=== PATIENT | male | born 1985 | race African-American/Black ===

== ENCOUNTER 2016-03-14 18:42 | Inpatient (IN) | payer SELFPAY ==
[~2016-03-14] VITALS: Ht 172.7 cm; Wt 88.5 kg
[~2016-03-14 18:42] MED LIST: CEPH500T PO; CLIN-44 PO; HYDR-971 PO; IBUP-1060 PO; SULF1TAB23 PO
--- NOTE | 2016-03-14 19:27 | PHYS DOC ---
Past Medical History Past Medical History: Asthma, Other Additional Past Medical Histor: family hx - DVT, HTN Past Surgical History: No Surgical History Alcohol Use: Occasionally Drug Use: None Adult General Chief Complaint Chief Complaint: KNEE INJURY HPI HPI Patient is a 31 year old male presents emergency Department stating he is having left knee pain. He states that he's been having some yellow drainage and discharge coming from the site. He states the knee is very red warm and tender to touch. He states he has numbness and tingling going down into his foot. He denies any difficulty with ambulation. He does state he's had cellulitis in the past. Patient denies any trauma or injury to the knee. Review of Systems Review of Systems Constitutional: Denies fever or chills [] Eyes: Denies change in visual acuity, redness, or eye pain [] HENT: Denies nasal congestion or sore throat [] Respiratory: Denies cough or shortness of breath [] Cardiovascular: No additional information not addressed in HPI [] Musculoskeletal: Denies back pain. Left knee pain with swelling and injury Integument: Denies rash or skin lesions [] Neurologic: Denies headache, focal weakness or sensory changes [] Current Medications Current Medications Current Medications Medications (Trade) Dose Ordered Sig/Akua Start Time Stop Time Status Last Admin Dose Admin Acetaminophen/ Hydrocodone Bitart (Lortab 5/325) 2 tab 1X ONCE 03/14/16 20:15 03/14/16 20:16 DC Allergies Allergies Allergies Coded Allergies Type Severity Reaction Last Updated Verified Fish Containing Products Allergy Intermediate 11/06/15 Yes shellfish derived Allergy Intermediate 11/06/15 Yes Physical Exam Physical Exam Constitutional: Well developed, well nourished, no acute distress, non-toxic appearance. [] HENT: Normocephalic, atraumatic, bilateral external ears normal, oropharynx moist, no oral exudates, nose normal. [] Eyes: PERRLA, EOMI, conjunctiva normal, no discharge. [] Neck: Normal range of motion, no tenderness, supple, no stridor. [] Cardiovascular:Heart rate regular rhythm Lungs & Thorax: No respiratory distress noted Skin: Warm, dry, no erythema, no rash. [] Back: No tenderness Extremities: Left knee tenderness, no cyanosis, no clubbing, ROM intact, no edema. Redness, warmth tenderness with yellow drainage noted on the knee Neurologic: Alert and oriented X 3, normal motor function, normal sensory function, no focal deficits noted. [] Psychologic: Affect normal, judgement normal, mood normal. [] Current Patient Data Vital Signs Vital Signs Date Time Temp Pulse Resp B/P Pulse Ox O2 Delivery O2 Flow Rate FiO2 03/14/16 18:50 98.6 86 18 99 Room Air 98.6 Lab Values Laboratory Tests Test 03/14/16 19:39 White Blood Count 16.4x10^3/uL (4.0-11.0) H Red Blood Count 5.66x10^6/uL (4.30-5.70) Hemoglobin 14.9g/dL (13.0-17.5) Hematocrit 46.6% (39.0-53.0) Mean Corpuscular Volume 82fL (79-100) Mean Corpuscular Hemoglobin 26pg (25-35) Mean Corpuscular Hemoglobin Concent 32g/dL (31-37) Red Cell Distribution Width 14.5% (11.5-14.5) Platelet Count 188x10^3/uL (140-400) Neutrophils (%) (Auto) 83% (31-73) H Lymphocytes (%) (Auto) 8% (24-48) L Monocytes (%) (Auto) 7% (0-9) Eosinophils (%) (Auto) 2% (0-3) Basophils (%) (Auto) 0% (0-3) Neutrophils # (Auto) 13.7x10^3uL (1.8-7.7) H Lymphocytes # (Auto) 1.4x10^3/uL (1.0-4.8) Monocytes # (Auto) 1.1x10^3/uL (0.0-1.1) Eosinophils # (Auto) 0.2x10^3/uL (0.0-0.7) Basophils # (Auto) 0.1x10^3/uL (0.0-0.2) Sodium Level 139mmol/L (136-145) Potassium Level 3.6mmol/L (3.5-5.1) Chloride Level 103mmol/L (98-107) Carbon Dioxide Level 24mmol/L (21-32) Anion Gap 12 (6-14) Blood Urea Nitrogen 13mg/dL (8-26) Creatinine 1.0mg/dL (0.7-1.3) Estimated GFR (Cockcroft-Gault) 106.2 BUN/Creatinine Ratio 13 (6-20) Glucose Level 75mg/dL (70-99) Calcium Level 9.5mg/dL (8.5-10.1) Total Bilirubin 0.7mg/dL (0.2-1.0) Aspartate Amino Transferase (AST) 19U/L (15-37) Alanine Aminotransferase (ALT) 27U/L (16-63) Alkaline Phosphatase 75U/L (46-116) Total Protein 8.5g/dL (6.4-8.2) H Albumin 4.0g/dL (3.4-5.0) Albumin/Globulin Ratio 0.9 (1.0-1.7) L Laboratory Tests 03/14/16 19:39 Laboratory Tests 03/14/16 19:39 EKG EKG [] Radiology/Procedures Radiology/Procedures [] Course & Med Decision Making Course & Med Decision Making Pertinent Labs and Imaging studies reviewed. (See chart for details) X-ray was negative for any abnormalities. [address] Kelli hampton in regards to admission for this patient. White count is 16.4 no abnormalities noted in the left knee x-ray. Patient's peripheral pulses are 2+ cap refill brisk less than 2 seconds. Patient's swelling appears to be 3 times the size of the right knee. Does appear to be warm and tender to touch. We'll provide patient with vancomycin IV and will also provide patient with hydrocodone for pain and discomfort. Orthopedic consult will be obtained as well. [] Dragon Disclaimer Dragon Disclaimer This electronic medical record was generated, in whole or in part, using a voice recognition dictation system. Departure Departure Impression: Primary Impression: Cellulitis of left knee Disposition: ADMITTED INPATIENT Admitting Physician: Alexis Pereira Condition: STABLE Referrals: NO PCP (PCP) MARIALUISA VELÁZQUEZ NP Mar 14, 2016 19:27
[2016-03-14 19:46] LABS: BASO # 0.1 x10^3/uL (0.0-0.2); BASO % 0 % (0-3); EOS % 2 % (0-3); HEMATOCRIT 46.6 % (39.0-53.0); HEMOGLOBIN 14.9 g/dL (13.0-17.5); LYMPH # 1.4 x10^3/uL (1.0-4.8); LYMPH % 8 % (24-48); MEAN CORPUSCULAR HEMOGLOBIN 26 pg (25-35); MEAN CORPUSCULAR HGB CONC 32 g/dL (31-37); MEAN CORPUSCULAR VOLUME 82 fL (79-100); MONO % 7 % (0-9); NEUT % 83 % (31-73); PLATELET COUNT 188 x10^3/uL (140-400); RED BLOOD COUNT 5.66 x10^6/uL (4.30-5.70); RED CELL DISTRIBUTION WIDTH 14.5 % (11.5-14.5); WHITE BLOOD COUNT 16.4 x10^3/uL (4.0-11.0)
[2016-03-14 20:04] LABS: CALCIUM 9.5 mg/dL (8.5-10.1); GFR 106.2; POTASSIUM 3.6 mmol/L (3.5-5.1)
[2016-03-14 20:10] LABS: ALBUMIN/GLOBULIN RATIO 0.9 (1.0-1.7); TOTAL BILIRUBIN 0.7 mg/dL (0.2-1.0); TOTAL PROTEIN 8.5 g/dL (6.4-8.2)
[2016-03-14] MEDS ORDERED: HYDROCODONE/APAP 5/325MG TABLET. PO ONE (20:15)
[2016-03-14] MEDS ORDERED: VANCOMYCIN 2 GM in IV NORMAL SALINE 500ML BAG 500 ML IV ONE (20:30)
[2016-03-14] MEDS ORDERED: VANCOMYCIN PER PHARMACY MC PRN ×2 (20:30→21:00)
--- NOTE | 2016-03-14 20:52 | PDOC1 ---
History and Physical Past Medical History Past Medical History asthma Past Surgical History Past Surgical History: No pertinent history Family History Family History ? HTN Social History Smoke: No ALCOHOL: occassional Current Problem List Problem List Problems Medical Problems: (1) Cellulitis of left knee Status: Acute Current Medications Current Medications Current Medications Medications (Trade) Dose Ordered Sig/Akua Start Time Stop Time Status Last Admin Dose Admin Acetaminophen/ Hydrocodone Bitart (Lortab 5/325) 2 tab PRN Q6HRS PRN 03/14/16 20:30 Vancomycin HCl 1 each 1 each PRN DAILY PRN 03/14/16 20:30 UNV Vancomycin HCl/ Sodium Chloride (Iv Sodium Chloride 0.9% 500ml Bag) 500 ml @ 250 mls/hr 1X ONCE 03/14/16 20:30 03/14/16 22:29 03/14/16 20:30 250 MLS/HR Allergies Allergies Allergies Coded Allergies Type Severity Reaction Last Updated Verified Fish Containing Products Allergy Intermediate 11/06/15 Yes shellfish derived Allergy Intermediate 11/06/15 Yes ROS Review of System CONSTITUTIONAL: No fever or chills EYES: No recent changes SKIN: No rash or itching CARDIOVASCULAR: No chest pain, syncope, palpitations, or edema RESPIRATORY: No SOB or cough GASTROINTESTINAL: No nausea, vomiting or abdominal pain NEUROLOGICAL: No headaches or weakness ENDOCRINE: No cold or heat intolerance GENITOURINARY: No urgency or frequency of urination MUSCULOSKELETAL: LEFT KNEE PAIN AND SWELLING LYMPHATICS: No enlarged lymph nodes PSYCHIATRIC: No anxiety or depression Physical Exam Physical Exam GEN.: No apparent distress. Alert and oriented. HEENT: Head is normocephalic, atraumatic NECK: Supple. no jvd LUNGS: Clear to auscultation. normal airflow HEART: RRR, S1, S2 present. Peripheral pulses intact ABDOMEN: Soft, nontender. Positive bowel sounds. EXTREMITIES: LEFT KNEE SWOLLEN, ERYTHEMATOUS, FURUNCLES NEUROLOGIC: Normal speech, normal tone PSYCHIATRIC: Normal affect, normal mood. SKIN: Vitals Vitals Vital Signs Date Time Temp Pulse Resp B/P Pulse Ox O2 Delivery O2 Flow Rate FiO2 03/14/16 18:50 98.6 86 18 99 Room Air 98.6 Labs Labs Laboratory Tests Test 03/14/16 19:39 White Blood Count 16.4x10^3/uL (4.0-11.0) Red Blood Count 5.66x10^6/uL (4.30-5.70) Hemoglobin 14.9g/dL (13.0-17.5) Hematocrit 46.6% (39.0-53.0) Mean Corpuscular Volume 82fL (79-100) Mean Corpuscular Hemoglobin 26pg (25-35) Mean Corpuscular Hemoglobin Concent 32g/dL (31-37) Red Cell Distribution Width 14.5% (11.5-14.5) Platelet Count 188x10^3/uL (140-400) Neutrophils (%) (Auto) 83% (31-73) Lymphocytes (%) (Auto) 8% (24-48) Monocytes (%) (Auto) 7% (0-9) Eosinophils (%) (Auto) 2% (0-3) Basophils (%) (Auto) 0% (0-3) Neutrophils # (Auto) 13.7x10^3uL (1.8-7.7) Lymphocytes # (Auto) 1.4x10^3/uL (1.0-4.8) Monocytes # (Auto) 1.1x10^3/uL (0.0-1.1) Eosinophils # (Auto) 0.2x10^3/uL (0.0-0.7) Basophils # (Auto) 0.1x10^3/uL (0.0-0.2) Sodium Level 139mmol/L (136-145) Potassium Level 3.6mmol/L (3.5-5.1) Chloride Level 103mmol/L (98-107) Carbon Dioxide Level 24mmol/L (21-32) Anion Gap 12 (6-14) Blood Urea Nitrogen 13mg/dL (8-26) Creatinine 1.0mg/dL (0.7-1.3) Estimated GFR (Cockcroft-Gault) 106.2 BUN/Creatinine Ratio 13 (6-20) Glucose Level 75mg/dL (70-99) Calcium Level 9.5mg/dL (8.5-10.1) Total Bilirubin 0.7mg/dL (0.2-1.0) Aspartate Amino Transf (AST/SGOT) 19U/L (15-37) Alanine Aminotransferase (ALT/SGPT) 27U/L (16-63) Alkaline Phosphatase 75U/L (46-116) Total Protein 8.5g/dL (6.4-8.2) Albumin 4.0g/dL (3.4-5.0) Albumin/Globulin Ratio 0.9 (1.0-1.7) Laboratory Tests Test 03/14/16 19:39 White Blood Count 16.4x10^3/uL (4.0-11.0) Red Blood Count 5.66x10^6/uL (4.30-5.70) Hemoglobin 14.9g/dL (13.0-17.5) Hematocrit 46.6% (39.0-53.0) Mean Corpuscular Volume 82fL (79-100) Mean Corpuscular Hemoglobin 26pg (25-35) Mean Corpuscular Hemoglobin Concent 32g/dL (31-37) Red Cell Distribution Width 14.5% (11.5-14.5) Platelet Count 188x10^3/uL (140-400) Neutrophils (%) (Auto) 83% (31-73) Lymphocytes (%) (Auto) 8% (24-48) Monocytes (%) (Auto) 7% (0-9) Eosinophils (%) (Auto) 2% (0-3) Basophils (%) (Auto) 0% (0-3) Neutrophils # (Auto) 13.7x10^3uL (1.8-7.7) Lymphocytes # (Auto) 1.4x10^3/uL (1.0-4.8) Monocytes # (Auto) 1.1x10^3/uL (0.0-1.1) Eosinophils # (Auto) 0.2x10^3/uL (0.0-0.7) Basophils # (Auto) 0.1x10^3/uL (0.0-0.2) Sodium Level 139mmol/L (136-145) Potassium Level 3.6mmol/L (3.5-5.1) Chloride Level 103mmol/L (98-107) Carbon Dioxide Level 24mmol/L (21-32) Anion Gap 12 (6-14) Blood Urea Nitrogen 13mg/dL (8-26) Creatinine 1.0mg/dL (0.7-1.3) Estimated GFR (Cockcroft-Gault) 106.2 BUN/Creatinine Ratio 13 (6-20) Glucose Level 75mg/dL (70-99) Calcium Level 9.5mg/dL (8.5-10.1) Total Bilirubin 0.7mg/dL (0.2-1.0) Aspartate Amino Transf (AST/SGOT) 19U/L (15-37) Alanine Aminotransferase (ALT/SGPT) 27U/L (16-63) Alkaline Phosphatase 75U/L (46-116) Total Protein 8.5g/dL (6.4-8.2) Albumin 4.0g/dL (3.4-5.0) Albumin/Globulin Ratio 0.9 (1.0-1.7) VTE Prophylaxis Ordered VTE Prophylaxis Devices: Yes VTE Pharmacological Prophylaxi: Yes ANDREWS RAMOS MD Mar 14, 2016 20:52
[2016-03-14] MEDS ORDERED: HYDROCODONE/APAP 5/325MG TABLET. PO PRN (21:00)
[2016-03-14] MEDS ORDERED: ALBUTEROL SULFATE 2.5 MG/3 ML NEBU. NEB PRN (21:00)
[2016-03-14] MEDS ORDERED: ACETAMINOPHEN 325 MG TABLET. PO PRN (21:00)
[2016-03-14] MEDS ORDERED: ONDANSETRON PF 4 MG/2 ML VIAL. IV PRN (21:00)
[2016-03-14] MEDS ORDERED: hydrALAZINE 20 MG/ML VIAL. IVP PRN (21:00)
[2016-03-14] MEDS ORDERED: MORPHINE SULFATE 2 MG/ML DISP.SYRIN. IV PRN (21:00)
[2016-03-14 23:00] VITALS: BP 117/82
--- NOTE | 2016-03-15 00:02 | HP ---
ADMIT DATE: 03/14/2016 CHIEF COMPLAINT: Left knee swelling, rash and redness. HISTORY OF PRESENT ILLNESS: A 31-year-old male patient with prior history of asthma, presented to the ER with complaints of 3 days of left knee redness, swelling and yellowish drainage. Also the patient noted worsening swelling compared to the right, could not able to have full range of motion around his left knee. Denies any trauma or prior history of knee surgeries. The patient had difficulty with ambulation due to pain and restrictive range of motion. He also had some furuncles and boils on the left talley. Per patient, this infection has been progressively getting worse. PAST MEDICAL HISTORY: Please see my electronic H and P. REVIEW OF SYSTEMS: Please see my electronic H and P. PHYSICAL EXAMINATION: Please see my electronic H and P. LABORATORY FINDINGS: 1. WBC 16.4, hemoglobin is 14.9, MCV is 82 and platelets are 188. 2. Chemistry: Sodium is 139, potassium 3.6, carbon dioxide is 24, creatinine is 1.0. IMAGING STUDIES: Knee x-ray preliminary report showed no acute pathology identified. ASSESSMENT AND PLAN: 1. Left knee cellulitis. Needs to rule out any joint involvement or abscess.. 2. Suspected MRSA infection. PLAN: 1. The patient has been admitted for pain control and IV antibiotics. We will start him on vancomycin renal dosing. 2. Pain control with IV morphine. 3. ____ has been consulted. 4. DVT prophylaxis, supportive care. 5. Plan explained to the patient. ANDREWS RAMOS MD DR: NORBERTO/liss JOB#: [id number] / [id number]
[2016-03-15] MEDS: HYDROCODONE/APAP 5/325MG TABLET. PO PRN ×3 (02:20→16:54)
[2016-03-15] MEDS: VANCOMYCIN 1.25 GM in IV NORMAL SALINE 250ML 250 ML IV SCH ×2 (05:43→14:34)
[2016-03-15 06:44] LABS: BASO % 0 % (0-3); EOS % 1 % (0-3); LYMPH # 1.8 x10^3/uL (1.0-4.8); LYMPH % 12 % (24-48); MEAN CORPUSCULAR HEMOGLOBIN 27 pg (25-35); MEAN CORPUSCULAR HGB CONC 33 g/dL (31-37); MEAN CORPUSCULAR VOLUME 83 fL (79-100); MONO % 8 % (0-9); NEUT % 79 % (31-73); PLATELET COUNT 206 x10^3/uL (140-400); RED BLOOD COUNT 5.57 x10^6/uL (4.30-5.70); RED CELL DISTRIBUTION WIDTH 14.2 % (11.5-14.5); WHITE BLOOD COUNT 14.7 x10^3/uL (4.0-11.0)
[2016-03-15 06:46] LABS: CALCIUM 8.8 mg/dL (8.5-10.1); CREATININE 1.1 mg/dL (0.7-1.3); GFR 95.1; POTASSIUM 3.6 mmol/L (3.5-5.1)
[2016-03-15 07:00] VITALS: BP 128/78
--- NOTE | 2016-03-15 07:04 | RAD ---
EXAM: Left knee, 3 views. HISTORY: Pain and swelling. COMPARISON: None. FINDINGS: Frontal, lateral and oblique views of the left knee are obtained. There is no fracture, dislocation or subluxation. There is prepatellar soft tissue prominence. There is no effusion. IMPRESSION: 1. No acute osseous finding. 2. Prepatellar soft tissue prominence. In the absence of recent trauma suggest a soft tissue contusion, this may be due to prepatellar bursitis.
[2016-03-15] MEDS ORDERED: ACETAMINOPHEN 325 MG TABLET. PO PRN (09:15)
[2016-03-15 11:00] VITALS: BP 125/69
[2016-03-15] MEDS ORDERED: PROAIR HFA8.5 GM INH (14:41)
[2016-03-15 14:50] VITALS: BP 127/78
--- NOTE | 2016-03-15 15:00 | PDOC ---
PROGRESS NOTES Chief Complaint Chief Complaint 1. Pre patellar bursitis 2. Hx left talley cellulitis 2 mos ago History of Present Illness History of Present Illness Still cant flex left knee warm to touch, swelling appreciable Xray shows sift tissue swelling but no fluid or fx Pt denies any trauma No fevers WBC down to 12 from 14 2 mos ago had cellulitis of left talley, treated at ER with I and D and sent home on PO bactrim, doxy and kefflex Pt denies any hardware in the knee Vitals Vitals Vital Signs Date Time Temp Pulse Resp B/P Pulse Ox O2 Delivery O2 Flow Rate FiO2 03/15/16 14:50 99.1 91 20 127/78 95 Room Air 99.1 Physical Exam General: Alert, Oriented X3, Cooperative Heart: Regular rate, Normal S1, Normal S2 Lungs: Clear Abdomen: Normal bowel sounds, Soft Extremities: Other (left knee swelling, warmth, tender to touch, limited flexion) Labs LABS Laboratory Tests Test 03/14/16 19:39 03/15/16 05:55 White Blood Count 16.4x10^3/uL (4.0-11.0) 14.7x10^3/uL (4.0-11.0) Red Blood Count 5.66x10^6/uL (4.30-5.70) 5.57x10^6/uL (4.30-5.70) Hemoglobin 14.9g/dL (13.0-17.5) 15.0g/dL (13.0-17.5) Hematocrit 46.6% (39.0-53.0) 46.0% (39.0-53.0) Mean Corpuscular Volume 82fL (79-100) 83fL (79-100) Mean Corpuscular Hemoglobin 26pg (25-35) 27pg (25-35) Mean Corpuscular Hemoglobin Concent 32g/dL (31-37) 33g/dL (31-37) Red Cell Distribution Width 14.5% (11.5-14.5) 14.2% (11.5-14.5) Platelet Count 188x10^3/uL (140-400) 206x10^3/uL (140-400) Neutrophils (%) (Auto) 83% (31-73) 79% (31-73) Lymphocytes (%) (Auto) 8% (24-48) 12% (24-48) Monocytes (%) (Auto) 7% (0-9) 8% (0-9) Eosinophils (%) (Auto) 2% (0-3) 1% (0-3) Basophils (%) (Auto) 0% (0-3) 0% (0-3) Neutrophils # (Auto) 13.7x10^3uL (1.8-7.7) 11.6x10^3uL (1.8-7.7) Lymphocytes # (Auto) 1.4x10^3/uL (1.0-4.8) 1.8x10^3/uL (1.0-4.8) Monocytes # (Auto) 1.1x10^3/uL (0.0-1.1) 1.1x10^3/uL (0.0-1.1) Eosinophils # (Auto) 0.2x10^3/uL (0.0-0.7) 0.2x10^3/uL (0.0-0.7) Basophils # (Auto) 0.1x10^3/uL (0.0-0.2) 0.0x10^3/uL (0.0-0.2) Sodium Level 139mmol/L (136-145) 139mmol/L (136-145) Potassium Level 3.6mmol/L (3.5-5.1) 3.6mmol/L (3.5-5.1) Chloride Level 103mmol/L (98-107) 104mmol/L (98-107) Carbon Dioxide Level 24mmol/L (21-32) 26mmol/L (21-32) Anion Gap 12 (6-14) 9 (6-14) Blood Urea Nitrogen 13mg/dL (8-26) 9mg/dL (8-26) Creatinine 1.0mg/dL (0.7-1.3) 1.1mg/dL (0.7-1.3) Estimated GFR (Cockcroft-Gault) 106.2 95.1 BUN/Creatinine Ratio 13 (6-20) Glucose Level 75mg/dL (70-99) 86mg/dL (70-99) Calcium Level 9.5mg/dL (8.5-10.1) 8.8mg/dL (8.5-10.1) Total Bilirubin 0.7mg/dL (0.2-1.0) Aspartate Amino Transf (AST/SGOT) 19U/L (15-37) Alanine Aminotransferase (ALT/SGPT) 27U/L (16-63) Alkaline Phosphatase 75U/L (46-116) Total Protein 8.5g/dL (6.4-8.2) Albumin 4.0g/dL (3.4-5.0) Albumin/Globulin Ratio 0.9 (1.0-1.7) Review of Systems Review of Systems all 14 pt reviewed, neg Assessment and Plan Assessmemt and Plan START NSAID scheduled Await ortho expertise De escalate to rocephin - i have low suspicion for MRSA, in fact i do not think the knee is infected ta all - may dc antibiotic all together Hopefully home adriana Problems Medical Problems: (1) Cellulitis of left knee Status: Acute Problems: Comment Review of Relevant I have reviewed the following items ander (where applicable) has been applied. Labs Laboratory Tests Test 03/14/16 19:39 03/15/16 05:55 White Blood Count 16.4x10^3/uL (4.0-11.0) 14.7x10^3/uL (4.0-11.0) Red Blood Count 5.66x10^6/uL (4.30-5.70) 5.57x10^6/uL (4.30-5.70) Hemoglobin 14.9g/dL (13.0-17.5) 15.0g/dL (13.0-17.5) Hematocrit 46.6% (39.0-53.0) 46.0% (39.0-53.0) Mean Corpuscular Volume 82fL (79-100) 83fL (79-100) Mean Corpuscular Hemoglobin 26pg (25-35) 27pg (25-35) Mean Corpuscular Hemoglobin Concent 32g/dL (31-37) 33g/dL (31-37) Red Cell Distribution Width 14.5% (11.5-14.5) 14.2% (11.5-14.5) Platelet Count 188x10^3/uL (140-400) 206x10^3/uL (140-400) Neutrophils (%) (Auto) 83% (31-73) 79% (31-73) Lymphocytes (%) (Auto) 8% (24-48) 12% (24-48) Monocytes (%) (Auto) 7% (0-9) 8% (0-9) Eosinophils (%) (Auto) 2% (0-3) 1% (0-3) Basophils (%) (Auto) 0% (0-3) 0% (0-3) Neutrophils # (Auto) 13.7x10^3uL (1.8-7.7) 11.6x10^3uL (1.8-7.7) Lymphocytes # (Auto) 1.4x10^3/uL (1.0-4.8) 1.8x10^3/uL (1.0-4.8) Monocytes # (Auto) 1.1x10^3/uL (0.0-1.1) 1.1x10^3/uL (0.0-1.1) Eosinophils # (Auto) 0.2x10^3/uL (0.0-0.7) 0.2x10^3/uL (0.0-0.7) Basophils # (Auto) 0.1x10^3/uL (0.0-0.2) 0.0x10^3/uL (0.0-0.2) Sodium Level 139mmol/L (136-145) 139mmol/L (136-145) Potassium Level 3.6mmol/L (3.5-5.1) 3.6mmol/L (3.5-5.1) Chloride Level 103mmol/L (98-107) 104mmol/L (98-107) Carbon Dioxide Level 24mmol/L (21-32) 26mmol/L (21-32) Anion Gap 12 (6-14) 9 (6-14) Blood Urea Nitrogen 13mg/dL (8-26) 9mg/dL (8-26) Creatinine 1.0mg/dL (0.7-1.3) 1.1mg/dL (0.7-1.3) Estimated GFR (Cockcroft-Gault) 106.2 95.1 BUN/Creatinine Ratio 13 (6-20) Glucose Level 75mg/dL (70-99) 86mg/dL (70-99) Calcium Level 9.5mg/dL (8.5-10.1) 8.8mg/dL (8.5-10.1) Total Bilirubin 0.7mg/dL (0.2-1.0) Aspartate Amino Transf (AST/SGOT) 19U/L (15-37) Alanine Aminotransferase (ALT/SGPT) 27U/L (16-63) Alkaline Phosphatase 75U/L (46-116) Total Protein 8.5g/dL (6.4-8.2) Albumin 4.0g/dL (3.4-5.0) Albumin/Globulin Ratio 0.9 (1.0-1.7) Laboratory Tests Test 03/14/16 19:39 03/15/16 05:55 White Blood Count 16.4x10^3/uL (4.0-11.0) 14.7x10^3/uL (4.0-11.0) Red Blood Count 5.66x10^6/uL (4.30-5.70) 5.57x10^6/uL (4.30-5.70) Hemoglobin 14.9g/dL (13.0-17.5) 15.0g/dL (13.0-17.5) Hematocrit 46.6% (39.0-53.0) 46.0% (39.0-53.0) Mean Corpuscular Volume 82fL (79-100) 83fL (79-100) Mean Corpuscular Hemoglobin 26pg (25-35) 27pg (25-35) Mean Corpuscular Hemoglobin Concent 32g/dL (31-37) 33g/dL (31-37) Red Cell Distribution Width 14.5% (11.5-14.5) 14.2% (11.5-14.5) Platelet Count 188x10^3/uL (140-400) 206x10^3/uL (140-400) Neutrophils (%) (Auto) 83% (31-73) 79% (31-73) Lymphocytes (%) (Auto) 8% (24-48) 12% (24-48) Monocytes (%) (Auto) 7% (0-9) 8% (0-9) Eosinophils (%) (Auto) 2% (0-3) 1% (0-3) Basophils (%) (Auto) 0% (0-3) 0% (0-3) Neutrophils # (Auto) 13.7x10^3uL (1.8-7.7) 11.6x10^3uL (1.8-7.7) Lymphocytes # (Auto) 1.4x10^3/uL (1.0-4.8) 1.8x10^3/uL (1.0-4.8) Monocytes # (Auto) 1.1x10^3/uL (0.0-1.1) 1.1x10^3/uL (0.0-1.1) Eosinophils # (Auto) 0.2x10^3/uL (0.0-0.7) 0.2x10^3/uL (0.0-0.7) Basophils # (Auto) 0.1x10^3/uL (0.0-0.2) 0.0x10^3/uL (0.0-0.2) Sodium Level 139mmol/L (136-145) 139mmol/L (136-145) Potassium Level 3.6mmol/L (3.5-5.1) 3.6mmol/L (3.5-5.1) Chloride Level 103mmol/L (98-107) 104mmol/L (98-107) Carbon Dioxide Level 24mmol/L (21-32) 26mmol/L (21-32) Anion Gap 12 (6-14) 9 (6-14) Blood Urea Nitrogen 13mg/dL (8-26) 9mg/dL (8-26) Creatinine 1.0mg/dL (0.7-1.3) 1.1mg/dL (0.7-1.3) Estimated GFR (Cockcroft-Gault) 106.2 95.1 BUN/Creatinine Ratio 13 (6-20) Glucose Level 75mg/dL (70-99) 86mg/dL (70-99) Calcium Level 9.5mg/dL (8.5-10.1) 8.8mg/dL (8.5-10.1) Total Bilirubin 0.7mg/dL (0.2-1.0) Aspartate Amino Transf (AST/SGOT) 19U/L (15-37) Alanine Aminotransferase (ALT/SGPT) 27U/L (16-63) Alkaline Phosphatase 75U/L (46-116) Total Protein 8.5g/dL (6.4-8.2) Albumin 4.0g/dL (3.4-5.0) Albumin/Globulin Ratio 0.9 (1.0-1.7) Medications Current Medications Acetaminophen/ Hydrocodone Bitart (Lortab 5/325) 2 tab 1X ONCE PO Last administered on 03/14/16 20:15; Start 03/14/16 at 20:15; Stop 03/14/16 at 20:16 ; Status DC Acetaminophen/ Hydrocodone Bitart (Lortab 5/325) 2 tab PRN Q6HRS PRN PO PAIN Last administered on 03/15/16 08:54; Start 03/14/16 at 20:30 Vancomycin HCl 1 each 1 each PRN DAILY PRN MC SEE COMMENTS; Start 03/14/16 at 20:30; Status Cancel Vancomycin HCl/ Sodium Chloride (Iv Sodium Chloride 0.9% 500ml Bag) 500 ml @ 250 mls/hr 1X ONCE IV Last administered on 03/14/16 20:30; Start 03/14/16 at 20:30; Stop 03/14/16 at 22:29; Status DC Acetaminophen (Tylenol) 325 mg PRN Q6HRS PRN PO MILD PAIN / TEMP; Start at 21:00; Stop 03/15/16 at 09:17; Status DC Acetaminophen/ Hydrocodone Bitart (Lortab 5/325) 1 tab PRN Q6HRS PRN PO MODERATE TO SEVERE PAIN; Start 03/14/16 at 21:00 Hydralazine HCl (Apresoline) 10 mg PRN Q4HRS PRN IVP ELEVATED BP, SEE COMMENTS ; Start 03/14/16 at 21:00 Ondansetron HCl (Zofran) 4 mg PRN Q8HRS PRN IV NAUSEA/VOMITING; Start 03/14/16 at 21:00; Stop 03/15/16 at 09:17; Status DC Albuterol Sulfate (Ventolin Neb Soln) 2.5 mg PRN Q4HRS PRN NEB SHORTNESS OF BREATH; Start 03/14/16 at 21:00 Vancomycin HCl (Vanco Per Pharmacy) 1 each PRN DAILY PRN MC SEE COMMENTS Last administered on 03/15/16t 02:35; Start 03/14/16 at 21:00 Morphine Sulfate 2 mg 2 mg PRN Q2HR PRN IV SEVERE PAIN; Start 03/14/16 at 21:00 Vancomycin HCl/ Sodium Chloride (Iv Sodium Chloride 0.9% 250ml) 250 ml @ 167 mls/hr Q8HRS IV Last administered on 03/15/16t 14:34; Start 03/15/16 at 06:00 Vancomycin HCl 1 each 1X ONCE MC ; Start 03/15/16 at 21:30; Stop 03/15/16 at 21 :31 Acetaminophen (Tylenol) 650 mg PRN Q6HRS PRN PO MILD PAIN / TEMP; Start at 09:15 Ondansetron HCl (Zofran) 4 mg PRN Q6HRS PRN IV NAUSEA/VOMITING; Start 03/15/16 at 21:00 Active Scripts Active Ibuprofen 800 Mg Tablet 800 Mg PO PRN Q6HRS PRN Reported Proair Hfa Inhaler (Albuterol Sulfate) 8.5 Gm Hfa.aer.ad 1 Puff INH PRN Q6HRS PRN Vitals/I & O Vital Sign - Last 24 Hours 03/14/16 03/14/16 03/14/16 03/14/16 18:50 21:10 21:10 21:59 Temp 98.6 98.6 Pulse 86 Resp 18 Pulse Ox 99 99 O2 Delivery Room Air Room Air Room Air Room Air 03/14/16 03/15/16 03/15/16 03/15/16 23:00 02:20 07:00 08:00 Temp 98.7 98.4 98.7 98.4 Pulse 78 89 Resp 18 18 20 B/P 117/82 128/78 Pulse Ox 95 95 95 O2 Delivery Room Air Room Air 03/15/16 03/15/16 03/15/16 03/15/16 08:54 09:54 11:00 14:50 Temp 98.8 99.1 98.8 99.1 Pulse 87 91 Resp 20 20 18 20 B/P 125/69 127/78 Pulse Ox 95 95 96 95 O2 Delivery Room Air Room Air Room Air Room Air Intake and Output 03/14/16 03/14/16 03/15/16 15:00 23:00 07:00 Intake Total 360 ml Balance 360 ml DEVIN LOMAX MD Mar 15, 2016 15:00
[2016-03-15] MEDS ORDERED: CEFTRIAXONE SODIUM 1 GM in IV NORMAL SALINE 50ML 50 ML IV SCH (15:30)
[2016-03-15] MEDS: NAPROXEN 500 MG TABLET PO SCH (16:47)
--- NOTE | 2016-03-15 16:51 | PDOC2 ---
CONSULT Date of Consult Date of Consult DATE: 03/15/16 TIME: 16:41 Reason for Consult Reason for Consult: left leg pain, knee swelling Identification/Chief Complaint Chief Complaint left leg pain, history of recent infection Source Source: Chart review, Patient History of Present Illness Reason for Visit: The patient is a 31 year old male who presented to the ER with a chief complaint of three days of leg pain and swelling. No fevers, chills, nausea, or vomiting. He had a previous abscess I&D'd on his left talley a few months ago at an ED. He was told it was cellulitus and placed on bactrim. He does not play sports or attend a gym. He has no recent sick contacts. He reports no trauma to the left leg. He is having difficulty bending the knee and ambulating due to the pain in his left leg. He has noticed some pus filled blisters on his anterior tibia starting today. wbc was elevated at 16.4 on admission, he has been on vancomycin since admission and his wbc is responding accordingly. He has been afebrile since admission. Past Medical History Pulmonary: Asthma Dermatology: Eczema Past Surgical History Past Surgical History: Other (I &D LLE), No pertinent history Family History Family History no significant family history per patient Social History No ALCOHOL: occassional Current Problem List Problem List Problems Medical Problems: (1) Cellulitis of left knee Status: Acute Current Medications Current Medications Current Medications Acetaminophen/ Hydrocodone Bitart (Lortab 5/325) 2 tab 1X ONCE PO Last administered on 03/14/16 20:15; Start 03/14/16 at 20:15; Stop 03/14/16 at 20:16 ; Status DC Acetaminophen/ Hydrocodone Bitart (Lortab 5/325) 2 tab PRN Q6HRS PRN PO MODERATE - SEVERE PAIN Last administered on 03/15/16 08:54; Start 03/14/16 at 20:30 Vancomycin HCl 1 each 1 each PRN DAILY PRN MC SEE COMMENTS; Start 03/14/16 at 20:30; Status Cancel Vancomycin HCl/ Sodium Chloride (Iv Sodium Chloride 0.9% 500ml Bag) 500 ml @ 250 mls/hr 1X ONCE IV Last administered on 03/14/16 20:30; Start 03/14/16 at 20:30; Stop 03/14/16 at 22:29; Status DC Acetaminophen (Tylenol) 325 mg PRN Q6HRS PRN PO MILD PAIN / TEMP; Start at 21:00; Stop 03/15/16 at 09:17; Status DC Acetaminophen/ Hydrocodone Bitart (Lortab 5/325) 1 tab PRN Q6HRS PRN PO MODERATE TO SEVERE PAIN; Start 03/14/16 at 21:00 Hydralazine HCl (Apresoline) 10 mg PRN Q4HRS PRN IVP ELEVATED BP, SEE COMMENTS ; Start 03/14/16 at 21:00 Ondansetron HCl (Zofran) 4 mg PRN Q8HRS PRN IV NAUSEA/VOMITING; Start 03/14/16 at 21:00; Stop 03/15/16 at 09:17; Status DC Albuterol Sulfate (Ventolin Neb Soln) 2.5 mg PRN Q4HRS PRN NEB SHORTNESS OF BREATH; Start 03/14/16 at 21:00 Vancomycin HCl (Vanco Per Pharmacy) 1 each PRN DAILY PRN MC SEE COMMENTS Last administered on 03/15/16t 02:35; Start 03/14/16 at 21:00; Stop 03/15/16 at 15:00 ; Status DC Morphine Sulfate 2 mg 2 mg PRN Q2HR PRN IV SEVERE PAIN; Start 03/14/16 at 21:00 Vancomycin HCl/ Sodium Chloride (Iv Sodium Chloride 0.9% 250ml) 250 ml @ 167 mls/hr Q8HRS IV Last administered on 03/15/16 14:34; Start 03/15/16 at 06:00; Stop 03/15/16 at 14:57; Status DC Vancomycin HCl 1 each 1X ONCE MC ; Start 03/15/16 at 21:30; Stop 03/15/16 at 21 :31; Status Cancel Acetaminophen (Tylenol) 650 mg PRN Q6HRS PRN PO MILD PAIN / TEMP; Start at 09:15 Ondansetron HCl (Zofran) 4 mg PRN Q6HRS PRN IV NAUSEA/VOMITING; Start 03/15/16 at 21:00 Naproxen 500 mg 500 mg BIDWMEALS PO ; Start 03/15/16 at 15:30 Ceftriaxone Sodium/Sodium Chloride (Rocephin/Iv Sodium Chloride 0.9% 50ml) 50 ml @ 100 mls/hr Q24H IV ; Start 03/15/16 at 15:30 Active Scripts Active Ibuprofen 800 Mg Tablet 800 Mg PO PRN Q6HRS PRN Reported Proair Hfa Inhaler (Albuterol Sulfate) 8.5 Gm Hfa.aer.ad 1 Puff INH PRN Q6HRS PRN Allergies Allergies: Coded Allergies: iodine (Verified Allergy, Severe, 03/15/16) Fish Containing Products (Verified Allergy, Intermediate, 11/06/15) SEAFOOD Iodine and Iodide Containing Produc (Verified Allergy, Intermediate, ) IV dye shellfish derived (Verified Allergy, Intermediate, 11/06/15) SEAFOOD ROS General: No: Appetite, Chills, Fatigue, Malaise, Night Sweats, Other Musculoskeletal: Yes Gait Disturbance, Yes Joint Pain, Yes Joint Stiffness, Yes Joint Swelling, Yes Pain In: (lle) Skin: Yes Eczema, Yes Skin Lesion Changes Physical Exam General: Alert, Oriented X3, Cooperative, No acute distress HEENT: Atraumatic, EOMI, Mucous membr. moist/pink Lungs: Normal air movement Heart: Regular rate Extremities: No clubbing, No cyanosis, No edema, Normal pulses Neuro: Normal speech, Sensation intact Psych/Mental Status: Mental status NL MUSCULOSKELETAL: Abnormal exam of left (LLE warm to the touch one handbreadth proximal to the proximal pole of the patella to the ankle. no pitting edema or swelling. significant ttp over the patella, especially where there is some hemmhoragic blistering and what looks to be pus filled blisters. unclear whether there is a joint effusion. no pain with small arc rom. full extension, flexion to 90 with anterior knee pain and tightness. pus filled blisters distally on the anterior tibia. no pockets of fluid, fluctuance, or crepitus notesd ) Vitals VITALS Vital Signs Date Time Temp Pulse Resp B/P Pulse Ox O2 Delivery O2 Flow Rate FiO2 03/15/16 14:50 99.1 91 20 127/78 95 Room Air 99.1 Labs Labs Laboratory Tests Test 03/14/16 19:39 03/15/16 05:55 White Blood Count 16.4x10^3/uL (4.0-11.0) 14.7x10^3/uL (4.0-11.0) Red Blood Count 5.66x10^6/uL (4.30-5.70) 5.57x10^6/uL (4.30-5.70) Hemoglobin 14.9g/dL (13.0-17.5) 15.0g/dL (13.0-17.5) Hematocrit 46.6% (39.0-53.0) 46.0% (39.0-53.0) Mean Corpuscular Volume 82fL (79-100) 83fL (79-100) Mean Corpuscular Hemoglobin 26pg (25-35) 27pg (25-35) Mean Corpuscular Hemoglobin Concent 32g/dL (31-37) 33g/dL (31-37) Red Cell Distribution Width 14.5% (11.5-14.5) 14.2% (11.5-14.5) Platelet Count 188x10^3/uL (140-400) 206x10^3/uL (140-400) Neutrophils (%) (Auto) 83% (31-73) 79% (31-73) Lymphocytes (%) (Auto) 8% (24-48) 12% (24-48) Monocytes (%) (Auto) 7% (0-9) 8% (0-9) Eosinophils (%) (Auto) 2% (0-3) 1% (0-3) Basophils (%) (Auto) 0% (0-3) 0% (0-3) Neutrophils # (Auto) 13.7x10^3uL (1.8-7.7) 11.6x10^3uL (1.8-7.7) Lymphocytes # (Auto) 1.4x10^3/uL (1.0-4.8) 1.8x10^3/uL (1.0-4.8) Monocytes # (Auto) 1.1x10^3/uL (0.0-1.1) 1.1x10^3/uL (0.0-1.1) Eosinophils # (Auto) 0.2x10^3/uL (0.0-0.7) 0.2x10^3/uL (0.0-0.7) Basophils # (Auto) 0.1x10^3/uL (0.0-0.2) 0.0x10^3/uL (0.0-0.2) Sodium Level 139mmol/L (136-145) 139mmol/L (136-145) Potassium Level 3.6mmol/L (3.5-5.1) 3.6mmol/L (3.5-5.1) Chloride Level 103mmol/L (98-107) 104mmol/L (98-107) Carbon Dioxide Level 24mmol/L (21-32) 26mmol/L (21-32) Anion Gap 12 (6-14) 9 (6-14) Blood Urea Nitrogen 13mg/dL (8-26) 9mg/dL (8-26) Creatinine 1.0mg/dL (0.7-1.3) 1.1mg/dL (0.7-1.3) Estimated GFR (Cockcroft-Gault) 106.2 95.1 BUN/Creatinine Ratio 13 (6-20) Glucose Level 75mg/dL (70-99) 86mg/dL (70-99) Calcium Level 9.5mg/dL (8.5-10.1) 8.8mg/dL (8.5-10.1) Total Bilirubin 0.7mg/dL (0.2-1.0) Aspartate Amino Transf (AST/SGOT) 19U/L (15-37) Alanine Aminotransferase (ALT/SGPT) 27U/L (16-63) Alkaline Phosphatase 75U/L (46-116) Total Protein 8.5g/dL (6.4-8.2) Albumin 4.0g/dL (3.4-5.0) Albumin/Globulin Ratio 0.9 (1.0-1.7) Laboratory Tests Test 03/14/16 19:39 03/15/16 05:55 White Blood Count 16.4x10^3/uL (4.0-11.0) 14.7x10^3/uL (4.0-11.0) Red Blood Count 5.66x10^6/uL (4.30-5.70) 5.57x10^6/uL (4.30-5.70) Hemoglobin 14.9g/dL (13.0-17.5) 15.0g/dL (13.0-17.5) Hematocrit 46.6% (39.0-53.0) 46.0% (39.0-53.0) Mean Corpuscular Volume 82fL (79-100) 83fL (79-100) Mean Corpuscular Hemoglobin 26pg (25-35) 27pg (25-35) Mean Corpuscular Hemoglobin Concent 32g/dL (31-37) 33g/dL (31-37) Red Cell Distribution Width 14.5% (11.5-14.5) 14.2% (11.5-14.5) Platelet Count 188x10^3/uL (140-400) 206x10^3/uL (140-400) Neutrophils (%) (Auto) 83% (31-73) 79% (31-73) Lymphocytes (%) (Auto) 8% (24-48) 12% (24-48) Monocytes (%) (Auto) 7% (0-9) 8% (0-9) Eosinophils (%) (Auto) 2% (0-3) 1% (0-3) Basophils (%) (Auto) 0% (0-3) 0% (0-3) Neutrophils # (Auto) 13.7x10^3uL (1.8-7.7) 11.6x10^3uL (1.8-7.7) Lymphocytes # (Auto) 1.4x10^3/uL (1.0-4.8) 1.8x10^3/uL (1.0-4.8) Monocytes # (Auto) 1.1x10^3/uL (0.0-1.1) 1.1x10^3/uL (0.0-1.1) Eosinophils # (Auto) 0.2x10^3/uL (0.0-0.7) 0.2x10^3/uL (0.0-0.7) Basophils # (Auto) 0.1x10^3/uL (0.0-0.2) 0.0x10^3/uL (0.0-0.2) Sodium Level 139mmol/L (136-145) 139mmol/L (136-145) Potassium Level 3.6mmol/L (3.5-5.1) 3.6mmol/L (3.5-5.1) Chloride Level 103mmol/L (98-107) 104mmol/L (98-107) Carbon Dioxide Level 24mmol/L (21-32) 26mmol/L (21-32) Anion Gap 12 (6-14) 9 (6-14) Blood Urea Nitrogen 13mg/dL (8-26) 9mg/dL (8-26) Creatinine 1.0mg/dL (0.7-1.3) 1.1mg/dL (0.7-1.3) Estimated GFR (Cockcroft-Gault) 106.2 95.1 BUN/Creatinine Ratio 13 (6-20) Glucose Level 75mg/dL (70-99) 86mg/dL (70-99) Calcium Level 9.5mg/dL (8.5-10.1) 8.8mg/dL (8.5-10.1) Total Bilirubin 0.7mg/dL (0.2-1.0) Aspartate Amino Transf (AST/SGOT) 19U/L (15-37) Alanine Aminotransferase (ALT/SGPT) 27U/L (16-63) Alkaline Phosphatase 75U/L (46-116) Total Protein 8.5g/dL (6.4-8.2) Albumin 4.0g/dL (3.4-5.0) Albumin/Globulin Ratio 0.9 (1.0-1.7) Images Images Xrays of the left tibia/ knee reveal significant soft tissue reaction. no bony abnormalities. no subcutaneous gas. Assessment/Plan Assessment/Plan 31 yo M with lle pain, swelling, and apparent infection -With his recent history of I&D, I would like to obtain an MRI of his lle to ensure that there is no deep abscess or septic arthritis. -I believe he has at best a significant cellulitus, which while he says the pain has improved some since getting antibiotics, he also has severe ttp and warm, with pus filled blisters. I would think that he should continue on the antibiotics, and possibly have and ID consult -I will f/u with the MRI to see if surgical intervention is necessary. I will make him NPO at midnight in case there is something on MRI. -Thank you for this consult. PAUL BAH MD Mar 15, 2016 16:51
[2016-03-15 19:00] VITALS: BP 117/69
[2016-03-15] MEDS ORDERED: ONDANSETRON PF 4 MG/2 ML VIAL. IV PRN (21:00)
--- NOTE | 2016-03-15 21:06 | RAD ---
PROCEDURE MRI of left knee. HISTORY Left knee swelling and open wound drainage on the patella. TECHNIQUE Routine multiplanar and multi pulse sequence imaging of the left knee is performed and images are obtained. COMPARISON None available. FINDINGS There is diffuse prepatellar soft tissue swelling. There is a elongated fluid collection in the prepatellar region measuring to the order of 1.5 centimeter in craniocaudal dimension. There is also soft tissue edema extending superior and inferiorly up to the infrapatellar tendon insertion. The patella and the patellar articular cartilage appears preserved. The extensor mechanism is intact. The medial and lateral patellar retinacula appear preserved. The anterior and posterior cruciate ligaments as well as the medial and lateral menisci are preserved. Medial and lateral collateral ligaments from are preserved. No abnormal bone marrow signal abnormality is detected. IMPRESSION Diffuse prepatellar soft tissue swelling with a small approximately 1.5 centimeter prepatellar fluid collection. Prepatellar bursitis is possible, however given the absence of IV contrast, abscess cannot be excluded. Electronically signed by: Billie Valadez MD (Mar 15, 2016 21:05:29)
[2016-03-15 23:00] VITALS: BP 140/80
[2016-03-16] MEDS: HYDROCODONE/APAP 5/325MG TABLET. PO PRN (02:55)
[2016-03-16 03:07] VITALS: BP 123/76
[2016-03-16 04:56] LABS: GFR 106.2; POTASSIUM 3.9 mmol/L (3.5-5.1)
[2016-03-16 07:15] VITALS: BP 118/73
--- NOTE | 2016-03-16 08:59 | PDOC ---
PROGRESS NOTES Subjective Subjective Problems overnight: The patient had MRI completed last night. No focal abscess noted, no large joint effusion. Likely prepatellar bursitis. He has been afebrile since admission. No new labs ordered this am. Objective Vital Signs Vital Signs Date Time Temp Pulse Resp B/P Pulse Ox O2 Delivery O2 Flow Rate FiO2 03/16/16 07:15 97.9 53 20 118/73 97 Room Air 97.9 Labs Laboratory Tests Test 03/14/16 19:39 03/15/16 05:55 03/16/16 04:20 White Blood Count 16.4x10^3/uL (4.0-11.0) 14.7x10^3/uL (4.0-11.0) Red Blood Count 5.66x10^6/uL (4.30-5.70) 5.57x10^6/uL (4.30-5.70) Hemoglobin 14.9g/dL (13.0-17.5) 15.0g/dL (13.0-17.5) Hematocrit 46.6% (39.0-53.0) 46.0% (39.0-53.0) Mean Corpuscular Volume 82fL (79-100) 83fL (79-100) Mean Corpuscular Hemoglobin 26pg (25-35) 27pg (25-35) Mean Corpuscular Hemoglobin Concent 32g/dL (31-37) 33g/dL (31-37) Red Cell Distribution Width 14.5% (11.5-14.5) 14.2% (11.5-14.5) Platelet Count 188x10^3/uL (140-400) 206x10^3/uL (140-400) Neutrophils (%) (Auto) 83% (31-73) 79% (31-73) Lymphocytes (%) (Auto) 8% (24-48) 12% (24-48) Monocytes (%) (Auto) 7% (0-9) 8% (0-9) Eosinophils (%) (Auto) 2% (0-3) 1% (0-3) Basophils (%) (Auto) 0% (0-3) 0% (0-3) Neutrophils # (Auto) 13.7x10^3uL (1.8-7.7) 11.6x10^3uL (1.8-7.7) Lymphocytes # (Auto) 1.4x10^3/uL (1.0-4.8) 1.8x10^3/uL (1.0-4.8) Monocytes # (Auto) 1.1x10^3/uL (0.0-1.1) 1.1x10^3/uL (0.0-1.1) Eosinophils # (Auto) 0.2x10^3/uL (0.0-0.7) 0.2x10^3/uL (0.0-0.7) Basophils # (Auto) 0.1x10^3/uL (0.0-0.2) 0.0x10^3/uL (0.0-0.2) Sodium Level 139mmol/L (136-145) 139mmol/L (136-145) 139mmol/L (136-145) Potassium Level 3.6mmol/L (3.5-5.1) 3.6mmol/L (3.5-5.1) 3.9mmol/L (3.5-5.1) Chloride Level 103mmol/L (98-107) 104mmol/L (98-107) 105mmol/L (98-107) Carbon Dioxide Level 24mmol/L (21-32) 26mmol/L (21-32) 29mmol/L (21-32) Anion Gap 12 (6-14) 9 (6-14) 5 (6-14) Blood Urea Nitrogen 13mg/dL (8-26) 9mg/dL (8-26) 10mg/dL (8-26) Creatinine 1.0mg/dL (0.7-1.3) 1.1mg/dL (0.7-1.3) 1.0mg/dL (0.7-1.3) Estimated GFR (Cockcroft-Gault) 106.2 95.1 106.2 BUN/Creatinine Ratio 13 (6-20) Glucose Level 75mg/dL (70-99) 86mg/dL (70-99) 99mg/dL (70-99) Calcium Level 9.5mg/dL (8.5-10.1) 8.8mg/dL (8.5-10.1) 9.0mg/dL (8.5-10.1) Total Bilirubin 0.7mg/dL (0.2-1.0) Aspartate Amino Transf (AST/SGOT) 19U/L (15-37) Alanine Aminotransferase (ALT/SGPT) 27U/L (16-63) Alkaline Phosphatase 75U/L (46-116) Total Protein 8.5g/dL (6.4-8.2) Albumin 4.0g/dL (3.4-5.0) Albumin/Globulin Ratio 0.9 (1.0-1.7) Laboratory Tests Test 03/16/16 04:20 Sodium Level 139mmol/L (136-145) Potassium Level 3.9mmol/L (3.5-5.1) Chloride Level 105mmol/L (98-107) Carbon Dioxide Level 29mmol/L (21-32) Anion Gap 5 (6-14) Blood Urea Nitrogen 10mg/dL (8-26) Creatinine 1.0mg/dL (0.7-1.3) Estimated GFR (Cockcroft-Gault) 106.2 Glucose Level 99mg/dL (70-99) Calcium Level 9.0mg/dL (8.5-10.1) Imaging MRI L knee: prepatellar edema, no large joint effusion. lack of contrast inhibits abscess localization, but no focal or discrete areas on the exam. Assessment Assessment Hospital day 2, left lower extremity pain, swelling, prepatellar bursitis vs cellulitus. MRI negative for anything needing surgical intervention at this point. Sometimes prepatellar bursitis does need an I&D, however, his symptoms are currently improving with IV antibiotics. -Will order cbc to see what his wbc is doing. -Likely will need to stay in the hospital on IV antibiotics until his wbc/ exam improves. may still need i&d, will eval daily ok to eat today, no surgical intervention planned Problems: PAUL BAH MD Mar 16, 2016 08:59
[2016-03-16] MEDS: NAPROXEN 500 MG TABLET PO SCH ×2 (09:02→17:02)
[2016-03-16 09:12] LABS: BASO # 0.1 x10^3/uL (0.0-0.2); BASO % 1 % (0-3); EOS % 3 % (0-3); HEMOGLOBIN 14.4 g/dL (13.0-17.5); LYMPH # 1.5 x10^3/uL (1.0-4.8); LYMPH % 12 % (24-48); MEAN CORPUSCULAR HEMOGLOBIN 26 pg (25-35); MEAN CORPUSCULAR HGB CONC 32 g/dL (31-37); MEAN CORPUSCULAR VOLUME 82 fL (79-100); MONO % 10 % (0-9); NEUT % 75 % (31-73); PLATELET COUNT 221 x10^3/uL (140-400); RED CELL DISTRIBUTION WIDTH 14.6 % (11.5-14.5); WHITE BLOOD COUNT 12.4 x10^3/uL (4.0-11.0)
[2016-03-16 10:20] VITALS: BP 123/73
--- NOTE | 2016-03-16 12:11 | PDOC ---
PROGRESS NOTES Chief Complaint Chief Complaint 1. Pre patellar bursitis 2. Hx left talley cellulitis 2 mos ago History of Present Illness History of Present Illness Knee seems to be better in swelling and warmth and range of motion No fevers WBC down to 12 today MRI shows some fluid prepatellar area FLuid seeping out - blister busted open last night Vitals Vitals Vital Signs Date Time Temp Pulse Resp B/P Pulse Ox O2 Delivery O2 Flow Rate FiO2 03/16/16 10:20 99.5 67 20 123/73 95 Room Air 99.5 Physical Exam General: Alert, Oriented X3, Cooperative, No acute distress Heart: Regular rate Lungs: Clear Abdomen: Normal bowel sounds, Soft Extremities: No clubbing, No cyanosis, No edema, Normal pulses Labs LABS Laboratory Tests Test 03/16/16 04:20 White Blood Count 12.4x10^3/uL (4.0-11.0) Red Blood Count 5.50x10^6/uL (4.30-5.70) Hemoglobin 14.4g/dL (13.0-17.5) Hematocrit 45.0% (39.0-53.0) Mean Corpuscular Volume 82fL (79-100) Mean Corpuscular Hemoglobin 26pg (25-35) Mean Corpuscular Hemoglobin Concent 32g/dL (31-37) Red Cell Distribution Width 14.6% (11.5-14.5) Platelet Count 221x10^3/uL (140-400) Neutrophils (%) (Auto) 75% (31-73) Lymphocytes (%) (Auto) 12% (24-48) Monocytes (%) (Auto) 10% (0-9) Eosinophils (%) (Auto) 3% (0-3) Basophils (%) (Auto) 1% (0-3) Neutrophils # (Auto) 9.3x10^3uL (1.8-7.7) Lymphocytes # (Auto) 1.5x10^3/uL (1.0-4.8) Monocytes # (Auto) 1.2x10^3/uL (0.0-1.1) Eosinophils # (Auto) 0.4x10^3/uL (0.0-0.7) Basophils # (Auto) 0.1x10^3/uL (0.0-0.2) Sodium Level 139mmol/L (136-145) Potassium Level 3.9mmol/L (3.5-5.1) Chloride Level 105mmol/L (98-107) Carbon Dioxide Level 29mmol/L (21-32) Anion Gap 5 (6-14) Blood Urea Nitrogen 10mg/dL (8-26) Creatinine 1.0mg/dL (0.7-1.3) Estimated GFR (Cockcroft-Gault) 106.2 Glucose Level 99mg/dL (70-99) Calcium Level 9.0mg/dL (8.5-10.1) Review of Systems Review of Systems no fevrs, SOA< abd pain or CP Assessment and Plan Assessmemt and Plan Gram stain and cx if able the knee fluid drainage COnt iV rocpehin for now, inc freq Cont naproxen BID If better clinically adriana, home adriana Problems Medical Problems: (1) Cellulitis of left knee Status: Acute Problems: Comment Review of Relevant I have reviewed the following items ander (where applicable) has been applied. Labs Laboratory Tests Test 03/14/16 19:39 03/15/16 05:55 03/16/16 04:20 White Blood Count 16.4x10^3/uL (4.0-11.0) 14.7x10^3/uL (4.0-11.0) 12.4x10^3/uL (4.0-11.0) Red Blood Count 5.66x10^6/uL (4.30-5.70) 5.57x10^6/uL (4.30-5.70) 5.50x10^6/uL (4.30-5.70) Hemoglobin 14.9g/dL (13.0-17.5) 15.0g/dL (13.0-17.5) 14.4g/dL (13.0-17.5) Hematocrit 46.6% (39.0-53.0) 46.0% (39.0-53.0) 45.0% (39.0-53.0) Mean Corpuscular Volume 82fL (79-100) 83fL (79-100) 82fL (79-100) Mean Corpuscular Hemoglobin 26pg (25-35) 27pg (25-35) 26pg (25-35) Mean Corpuscular Hemoglobin Concent 32g/dL (31-37) 33g/dL (31-37) 32g/dL (31-37) Red Cell Distribution Width 14.5% (11.5-14.5) 14.2% (11.5-14.5) 14.6% (11.5-14.5) Platelet Count 188x10^3/uL (140-400) 206x10^3/uL (140-400) 221x10^3/uL (140-400) Neutrophils (%) (Auto) 83% (31-73) 79% (31-73) 75% (31-73) Lymphocytes (%) (Auto) 8% (24-48) 12% (24-48) 12% (24-48) Monocytes (%) (Auto) 7% (0-9) 8% (0-9) 10% (0-9) Eosinophils (%) (Auto) 2% (0-3) 1% (0-3) 3% (0-3) Basophils (%) (Auto) 0% (0-3) 0% (0-3) 1% (0-3) Neutrophils # (Auto) 13.7x10^3uL (1.8-7.7) 11.6x10^3uL (1.8-7.7) 9.3x10^3uL (1.8-7.7) Lymphocytes # (Auto) 1.4x10^3/uL (1.0-4.8) 1.8x10^3/uL (1.0-4.8) 1.5x10^3/uL (1.0-4.8) Monocytes # (Auto) 1.1x10^3/uL (0.0-1.1) 1.1x10^3/uL (0.0-1.1) 1.2x10^3/uL (0.0-1.1) Eosinophils # (Auto) 0.2x10^3/uL (0.0-0.7) 0.2x10^3/uL (0.0-0.7) 0.4x10^3/uL (0.0-0.7) Basophils # (Auto) 0.1x10^3/uL (0.0-0.2) 0.0x10^3/uL (0.0-0.2) 0.1x10^3/uL (0.0-0.2) Sodium Level 139mmol/L (136-145) 139mmol/L (136-145) 139mmol/L (136-145) Potassium Level 3.6mmol/L (3.5-5.1) 3.6mmol/L (3.5-5.1) 3.9mmol/L (3.5-5.1) Chloride Level 103mmol/L (98-107) 104mmol/L (98-107) 105mmol/L (98-107) Carbon Dioxide Level 24mmol/L (21-32) 26mmol/L (21-32) 29mmol/L (21-32) Anion Gap 12 (6-14) 9 (6-14) 5 (6-14) Blood Urea Nitrogen 13mg/dL (8-26) 9mg/dL (8-26) 10mg/dL (8-26) Creatinine 1.0mg/dL (0.7-1.3) 1.1mg/dL (0.7-1.3) 1.0mg/dL (0.7-1.3) Estimated GFR (Cockcroft-Gault) 106.2 95.1 106.2 BUN/Creatinine Ratio 13 (6-20) Glucose Level 75mg/dL (70-99) 86mg/dL (70-99) 99mg/dL (70-99) Calcium Level 9.5mg/dL (8.5-10.1) 8.8mg/dL (8.5-10.1) 9.0mg/dL (8.5-10.1) Total Bilirubin 0.7mg/dL (0.2-1.0) Aspartate Amino Transf (AST/SGOT) 19U/L (15-37) Alanine Aminotransferase (ALT/SGPT) 27U/L (16-63) Alkaline Phosphatase 75U/L (46-116) Total Protein 8.5g/dL (6.4-8.2) Albumin 4.0g/dL (3.4-5.0) Albumin/Globulin Ratio 0.9 (1.0-1.7) Laboratory Tests Test 03/16/16 04:20 White Blood Count 12.4x10^3/uL (4.0-11.0) Red Blood Count 5.50x10^6/uL (4.30-5.70) Hemoglobin 14.4g/dL (13.0-17.5) Hematocrit 45.0% (39.0-53.0) Mean Corpuscular Volume 82fL (79-100) Mean Corpuscular Hemoglobin 26pg (25-35) Mean Corpuscular Hemoglobin Concent 32g/dL (31-37) Red Cell Distribution Width 14.6% (11.5-14.5) Platelet Count 221x10^3/uL (140-400) Neutrophils (%) (Auto) 75% (31-73) Lymphocytes (%) (Auto) 12% (24-48) Monocytes (%) (Auto) 10% (0-9) Eosinophils (%) (Auto) 3% (0-3) Basophils (%) (Auto) 1% (0-3) Neutrophils # (Auto) 9.3x10^3uL (1.8-7.7) Lymphocytes # (Auto) 1.5x10^3/uL (1.0-4.8) Monocytes # (Auto) 1.2x10^3/uL (0.0-1.1) Eosinophils # (Auto) 0.4x10^3/uL (0.0-0.7) Basophils # (Auto) 0.1x10^3/uL (0.0-0.2) Sodium Level 139mmol/L (136-145) Potassium Level 3.9mmol/L (3.5-5.1) Chloride Level 105mmol/L (98-107) Carbon Dioxide Level 29mmol/L (21-32) Anion Gap 5 (6-14) Blood Urea Nitrogen 10mg/dL (8-26) Creatinine 1.0mg/dL (0.7-1.3) Estimated GFR (Cockcroft-Gault) 106.2 Glucose Level 99mg/dL (70-99) Calcium Level 9.0mg/dL (8.5-10.1) Microbiology 03/14/16 Blood Culture - Preliminary, Resulted NO GROWTH AFTER 1 DAY Medications Current Medications Acetaminophen/ Hydrocodone Bitart (Lortab 5/325) 2 tab 1X ONCE PO Last administered on 03/14/16 20:15; Start 03/14/16 at 20:15; Stop 03/14/16 at 20:16 ; Status DC Acetaminophen/ Hydrocodone Bitart (Lortab 5/325) 2 tab PRN Q6HRS PRN PO MODERATE - SEVERE PAIN Last administered on 03/16/16 02:55; Start 03/14/16 at 20:30 Vancomycin HCl 1 each 1 each PRN DAILY PRN MC SEE COMMENTS; Start 03/14/16 at 20:30; Status Cancel Vancomycin HCl/ Sodium Chloride (Iv Sodium Chloride 0.9% 500ml Bag) 500 ml @ 250 mls/hr 1X ONCE IV Last administered on 03/14/16 20:30; Start 03/14/16 at 20:30; Stop 03/14/16 at 22:29; Status DC Acetaminophen (Tylenol) 325 mg PRN Q6HRS PRN PO MILD PAIN / TEMP; Start at 21:00; Stop 03/15/16 at 09:17; Status DC Acetaminophen/ Hydrocodone Bitart (Lortab 5/325) 1 tab PRN Q6HRS PRN PO MODERATE TO SEVERE PAIN; Start 03/14/16 at 21:00 Hydralazine HCl (Apresoline) 10 mg PRN Q4HRS PRN IVP ELEVATED BP, SEE COMMENTS ; Start 03/14/16 at 21:00 Ondansetron HCl (Zofran) 4 mg PRN Q8HRS PRN IV NAUSEA/VOMITING; Start 03/14/16 at 21:00; Stop 03/15/16 at 09:17; Status DC Albuterol Sulfate (Ventolin Neb Soln) 2.5 mg PRN Q4HRS PRN NEB SHORTNESS OF BREATH; Start 03/14/16 at 21:00 Vancomycin HCl (Vanco Per Pharmacy) 1 each PRN DAILY PRN MC SEE COMMENTS Last administered on 03/15/16 02:35; Start 03/14/16 at 21:00; Stop 03/15/16 at 15:00 ; Status DC Morphine Sulfate 2 mg 2 mg PRN Q2HR PRN IV SEVERE PAIN; Start 03/14/16 at 21:00 Vancomycin HCl/ Sodium Chloride (Iv Sodium Chloride 0.9% 250ml) 250 ml @ 167 mls/hr Q8HRS IV Last administered on 03/15/16 14:34; Start 03/15/16 at 06:00; Stop 03/15/16 at 14:57; Status DC Vancomycin HCl 1 each 1X ONCE MC ; Start 03/15/16 at 21:30; Stop 03/15/16 at 21 :31; Status Cancel Acetaminophen (Tylenol) 650 mg PRN Q6HRS PRN PO MILD PAIN / TEMP; Start at 09:15 Ondansetron HCl (Zofran) 4 mg PRN Q6HRS PRN IV NAUSEA/VOMITING; Start 03/15/16 at 21:00 Naproxen 500 mg 500 mg BIDWMEALS PO Last administered on 03/16/16 09:02; Start 03/15/16 at 15:30 Ceftriaxone Sodium/Sodium Chloride (Rocephin/Iv Sodium Chloride 0.9% 50ml) 50 ml @ 100 mls/hr Q24H IV Last administered on 03/15/16 16:47; Start 03/15/16 at 15:30 Active Scripts Active Ibuprofen 800 Mg Tablet 800 Mg PO PRN Q6HRS PRN Reported Proair Hfa Inhaler (Albuterol Sulfate) 8.5 Gm Hfa.aer.ad 1 Puff INH PRN Q6HRS PRN Vitals/I & O Vital Sign - Last 24 Hours 03/15/16 03/15/16 03/15/16 03/15/16 14:50 16:54 17:54 19:00 Temp 99.1 98.3 99.1 98.3 Pulse 91 73 Resp 20 20 20 20 B/P 127/78 117/69 Pulse Ox 95 95 95 97 O2 Delivery Room Air Room Air Room Air Room Air 03/15/16 03/15/16 03/16/16 03/16/16 19:47 23:00 02:55 03:07 Temp 97.5 98.4 97.5 98.4 Pulse 56 72 Resp 20 18 20 B/P 140/80 123/76 Pulse Ox 100 100 98 O2 Delivery Room Air Room Air Room Air Room Air 03/16/16 03/16/16 03/16/16 07:15 08:00 10:20 Temp 97.9 99.5 97.9 99.5 Pulse 53 67 Resp 20 20 B/P 118/73 123/73 Pulse Ox 97 95 O2 Delivery Room Air Room Air Room Air Intake and Output 03/15/16 03/15/16 03/16/16 15:00 23:00 07:00 Intake Total 480 ml Balance 480 ml DEVIN LOMAX MD Mar 16, 2016 12:11
[2016-03-16 15:00] VITALS: BP 114/57
[2016-03-16] MEDS: NORMAL SALINE IV SCH (15:03)
[2016-03-16] MEDS: CEFTRIAXONE SODIUM IV SCH (15:03)
[2016-03-16 19:00] VITALS: BP 118/72
[2016-03-16 23:00] VITALS: BP 120/81
[2016-03-17] MEDS: HYDROCODONE/APAP 5/325MG TABLET. PO PRN (00:16)
[2016-03-17 03:00] VITALS: BP 126/75
[2016-03-17 05:16] LABS: BASO # 0.1 x10^3/uL (0.0-0.2); BASO % 1 % (0-3); EOS % 3 % (0-3); HEMATOCRIT 44.9 % (39.0-53.0); HEMOGLOBIN 14.8 g/dL (13.0-17.5); LYMPH # 1.5 x10^3/uL (1.0-4.8); LYMPH % 13 % (24-48); MEAN CORPUSCULAR HEMOGLOBIN 27 pg (25-35); MEAN CORPUSCULAR HGB CONC 33 g/dL (31-37); MEAN CORPUSCULAR VOLUME 82 fL (79-100); MONO % 8 % (0-9); NEUT % 75 % (31-73); PLATELET COUNT 236 x10^3/uL (140-400); RED BLOOD COUNT 5.44 x10^6/uL (4.30-5.70); RED CELL DISTRIBUTION WIDTH 14.1 % (11.5-14.5)
[2016-03-17 07:00] VITALS: BP 114/76
[2016-03-17] MEDS: NAPROXEN 500 MG TABLET PO SCH ×2 (08:31→16:57)
--- NOTE | 2016-03-17 10:25 | PDOC ---
PROGRESS NOTES Subjective Subjective Problems overnight: Pain improving in his leg, less swelling and warmth. a blister on the knee opened up yesterday, covered with a dressing today. Dressing removed, and nearly the entire patellar surface is covered with a desquaminating seropurulent blister with drainage and pustules. The patient was surprised at the appearance. No fevers, chills, nausea, vomiting. Objective Vital Signs Vital Signs Date Time Temp Pulse Resp B/P Pulse Ox O2 Delivery O2 Flow Rate FiO2 03/17/16 07:00 73 18 114/76 99 Room Air 03/17/16 03:00 97.5 97.5 Physical Exam LLE: decreased swelling about the knee, leg. less warmth in the leg. seropurulent blister over the patella with drainage and desquamination. painful to the touch. nvi distally,. Labs Laboratory Tests Test 03/16/16 04:20 03/17/16 04:25 White Blood Count 12.4x10^3/uL (4.0-11.0) 11.0x10^3/uL (4.0-11.0) Red Blood Count 5.50x10^6/uL (4.30-5.70) 5.44x10^6/uL (4.30-5.70) Hemoglobin 14.4g/dL (13.0-17.5) 14.8g/dL (13.0-17.5) Hematocrit 45.0% (39.0-53.0) 44.9% (39.0-53.0) Mean Corpuscular Volume 82fL (79-100) 82fL (79-100) Mean Corpuscular Hemoglobin 26pg (25-35) 27pg (25-35) Mean Corpuscular Hemoglobin Concent 32g/dL (31-37) 33g/dL (31-37) Red Cell Distribution Width 14.6% (11.5-14.5) 14.1% (11.5-14.5) Platelet Count 221x10^3/uL (140-400) 236x10^3/uL (140-400) Neutrophils (%) (Auto) 75% (31-73) 75% (31-73) Lymphocytes (%) (Auto) 12% (24-48) 13% (24-48) Monocytes (%) (Auto) 10% (0-9) 8% (0-9) Eosinophils (%) (Auto) 3% (0-3) 3% (0-3) Basophils (%) (Auto) 1% (0-3) 1% (0-3) Neutrophils # (Auto) 9.3x10^3uL (1.8-7.7) 8.3x10^3uL (1.8-7.7) Lymphocytes # (Auto) 1.5x10^3/uL (1.0-4.8) 1.5x10^3/uL (1.0-4.8) Monocytes # (Auto) 1.2x10^3/uL (0.0-1.1) 0.8x10^3/uL (0.0-1.1) Eosinophils # (Auto) 0.4x10^3/uL (0.0-0.7) 0.4x10^3/uL (0.0-0.7) Basophils # (Auto) 0.1x10^3/uL (0.0-0.2) 0.1x10^3/uL (0.0-0.2) Sodium Level 139mmol/L (136-145) Potassium Level 3.9mmol/L (3.5-5.1) Chloride Level 105mmol/L (98-107) Carbon Dioxide Level 29mmol/L (21-32) Anion Gap 5 (6-14) Blood Urea Nitrogen 10mg/dL (8-26) Creatinine 1.0mg/dL (0.7-1.3) Estimated GFR (Cockcroft-Gault) 106.2 Glucose Level 99mg/dL (70-99) Calcium Level 9.0mg/dL (8.5-10.1) Erythrocyte Sedimentation Rate 12 (0-15) Laboratory Tests Test 03/17/16 04:25 White Blood Count 11.0x10^3/uL (4.0-11.0) Red Blood Count 5.44x10^6/uL (4.30-5.70) Hemoglobin 14.8g/dL (13.0-17.5) Hematocrit 44.9% (39.0-53.0) Mean Corpuscular Volume 82fL (79-100) Mean Corpuscular Hemoglobin 27pg (25-35) Mean Corpuscular Hemoglobin Concent 33g/dL (31-37) Red Cell Distribution Width 14.1% (11.5-14.5) Platelet Count 236x10^3/uL (140-400) Neutrophils (%) (Auto) 75% (31-73) Lymphocytes (%) (Auto) 13% (24-48) Monocytes (%) (Auto) 8% (0-9) Eosinophils (%) (Auto) 3% (0-3) Basophils (%) (Auto) 1% (0-3) Neutrophils # (Auto) 8.3x10^3uL (1.8-7.7) Lymphocytes # (Auto) 1.5x10^3/uL (1.0-4.8) Monocytes # (Auto) 0.8x10^3/uL (0.0-1.1) Eosinophils # (Auto) 0.4x10^3/uL (0.0-0.7) Basophils # (Auto) 0.1x10^3/uL (0.0-0.2) Erythrocyte Sedimentation Rate 12 (0-15) Assessment Assessment Left knee prepatellar bursitis, worsening. Problems: Plan Plan of Care The patient has been on IV antibiotics for a few days now and his leg is looking better, except for the area over his patella where he has developed a large seropurulent blister. I believe it would be prudent to perform and I& D of his prepatellar bursitis and collect a culture intraop. -He ate breakfast this am, so I will make him NPO now. - We will do the procedure later today. -Discussed with the patient, he agrees. He will likely have packing placed after surgery and may need to be here over the weekend. PAUL BAH MD Mar 17, 2016 10:25
[2016-03-17 11:00] VITALS: BP 117/74
--- NOTE | 2016-03-17 12:05 | PDOC ---
PROGRESS NOTES Chief Complaint Chief Complaint 1. Pre patellar bursitis 2. Hx left talley cellulitis 2 mos ago 3. Left knee blister spontaneously ruptured History of Present Illness History of Present Illness Another huge blister on knee ruptured today WBC normal now NO fevers Gram stain of left knee shows gram positive cocci Vitals Vitals Vital Signs Date Time Temp Pulse Resp B/P Pulse Ox O2 Delivery O2 Flow Rate FiO2 03/17/16 07:00 73 18 114/76 99 Room Air 03/17/16 03:00 97.5 97.5 Physical Exam General: Alert, Oriented X3, Cooperative, No acute distress Heart: Regular rate Lungs: Clear Abdomen: Normal bowel sounds, Soft Extremities: No clubbing, No cyanosis, No edema, Normal pulses Labs LABS Laboratory Tests Test 03/17/16 04:25 White Blood Count 11.0x10^3/uL (4.0-11.0) Red Blood Count 5.44x10^6/uL (4.30-5.70) Hemoglobin 14.8g/dL (13.0-17.5) Hematocrit 44.9% (39.0-53.0) Mean Corpuscular Volume 82fL (79-100) Mean Corpuscular Hemoglobin 27pg (25-35) Mean Corpuscular Hemoglobin Concent 33g/dL (31-37) Red Cell Distribution Width 14.1% (11.5-14.5) Platelet Count 236x10^3/uL (140-400) Neutrophils (%) (Auto) 75% (31-73) Lymphocytes (%) (Auto) 13% (24-48) Monocytes (%) (Auto) 8% (0-9) Eosinophils (%) (Auto) 3% (0-3) Basophils (%) (Auto) 1% (0-3) Neutrophils # (Auto) 8.3x10^3uL (1.8-7.7) Lymphocytes # (Auto) 1.5x10^3/uL (1.0-4.8) Monocytes # (Auto) 0.8x10^3/uL (0.0-1.1) Eosinophils # (Auto) 0.4x10^3/uL (0.0-0.7) Basophils # (Auto) 0.1x10^3/uL (0.0-0.2) Erythrocyte Sedimentation Rate 12 (0-15) Review of Systems Review of Systems all else is neg except for left knee pain and limited flexion Assessment and Plan Assessmemt and Plan Planned for I and D later COnt Rocephin If cultures show mRSA then can need to escalate to Vanc Doubt mRSA though given improving white ct and no fevers Problems Medical Problems: (1) Cellulitis of left knee Status: Acute Problems: Comment Review of Relevant I have reviewed the following items ander (where applicable) has been applied. Labs Laboratory Tests Test 03/16/16 04:20 03/17/16 04:25 White Blood Count 12.4x10^3/uL (4.0-11.0) 11.0x10^3/uL (4.0-11.0) Red Blood Count 5.50x10^6/uL (4.30-5.70) 5.44x10^6/uL (4.30-5.70) Hemoglobin 14.4g/dL (13.0-17.5) 14.8g/dL (13.0-17.5) Hematocrit 45.0% (39.0-53.0) 44.9% (39.0-53.0) Mean Corpuscular Volume 82fL (79-100) 82fL (79-100) Mean Corpuscular Hemoglobin 26pg (25-35) 27pg (25-35) Mean Corpuscular Hemoglobin Concent 32g/dL (31-37) 33g/dL (31-37) Red Cell Distribution Width 14.6% (11.5-14.5) 14.1% (11.5-14.5) Platelet Count 221x10^3/uL (140-400) 236x10^3/uL (140-400) Neutrophils (%) (Auto) 75% (31-73) 75% (31-73) Lymphocytes (%) (Auto) 12% (24-48) 13% (24-48) Monocytes (%) (Auto) 10% (0-9) 8% (0-9) Eosinophils (%) (Auto) 3% (0-3) 3% (0-3) Basophils (%) (Auto) 1% (0-3) 1% (0-3) Neutrophils # (Auto) 9.3x10^3uL (1.8-7.7) 8.3x10^3uL (1.8-7.7) Lymphocytes # (Auto) 1.5x10^3/uL (1.0-4.8) 1.5x10^3/uL (1.0-4.8) Monocytes # (Auto) 1.2x10^3/uL (0.0-1.1) 0.8x10^3/uL (0.0-1.1) Eosinophils # (Auto) 0.4x10^3/uL (0.0-0.7) 0.4x10^3/uL (0.0-0.7) Basophils # (Auto) 0.1x10^3/uL (0.0-0.2) 0.1x10^3/uL (0.0-0.2) Sodium Level 139mmol/L (136-145) Potassium Level 3.9mmol/L (3.5-5.1) Chloride Level 105mmol/L (98-107) Carbon Dioxide Level 29mmol/L (21-32) Anion Gap 5 (6-14) Blood Urea Nitrogen 10mg/dL (8-26) Creatinine 1.0mg/dL (0.7-1.3) Estimated GFR (Cockcroft-Gault) 106.2 Glucose Level 99mg/dL (70-99) Calcium Level 9.0mg/dL (8.5-10.1) Erythrocyte Sedimentation Rate 12 (0-15) Laboratory Tests Test 03/17/16 04:25 White Blood Count 11.0x10^3/uL (4.0-11.0) Red Blood Count 5.44x10^6/uL (4.30-5.70) Hemoglobin 14.8g/dL (13.0-17.5) Hematocrit 44.9% (39.0-53.0) Mean Corpuscular Volume 82fL (79-100) Mean Corpuscular Hemoglobin 27pg (25-35) Mean Corpuscular Hemoglobin Concent 33g/dL (31-37) Red Cell Distribution Width 14.1% (11.5-14.5) Platelet Count 236x10^3/uL (140-400) Neutrophils (%) (Auto) 75% (31-73) Lymphocytes (%) (Auto) 13% (24-48) Monocytes (%) (Auto) 8% (0-9) Eosinophils (%) (Auto) 3% (0-3) Basophils (%) (Auto) 1% (0-3) Neutrophils # (Auto) 8.3x10^3uL (1.8-7.7) Lymphocytes # (Auto) 1.5x10^3/uL (1.0-4.8) Monocytes # (Auto) 0.8x10^3/uL (0.0-1.1) Eosinophils # (Auto) 0.4x10^3/uL (0.0-0.7) Basophils # (Auto) 0.1x10^3/uL (0.0-0.2) Erythrocyte Sedimentation Rate 12 (0-15) Microbiology 03/14/16 Blood Culture - Preliminary, Resulted NO GROWTH AFTER 2 DAYS 03/16/16 Gram Stain - Final, Complete Medications Current Medications Acetaminophen/ Hydrocodone Bitart (Lortab 5/325) 2 tab 1X ONCE PO Last administered on 03/14/16 20:15; Start 03/14/16 at 20:15; Stop 03/14/16 at 20:16 ; Status DC Acetaminophen/ Hydrocodone Bitart (Lortab 5/325) 2 tab PRN Q6HRS PRN PO MODERATE - SEVERE PAIN Last administered on 03/17/16 00:16; Start 03/14/16 at 20:30 Vancomycin HCl 1 each 1 each PRN DAILY PRN MC SEE COMMENTS; Start 03/14/16 at 20:30; Status Cancel Vancomycin HCl/ Sodium Chloride (Iv Sodium Chloride 0.9% 500ml Bag) 500 ml @ 250 mls/hr 1X ONCE IV Last administered on 03/14/16 20:30; Start 03/14/16 at 20:30; Stop 03/14/16 at 22:29; Status DC Acetaminophen (Tylenol) 325 mg PRN Q6HRS PRN PO MILD PAIN / TEMP; Start at 21:00; Stop 03/15/16 at 09:17; Status DC Acetaminophen/ Hydrocodone Bitart (Lortab 5/325) 1 tab PRN Q6HRS PRN PO MODERATE TO SEVERE PAIN; Start 03/14/16 at 21:00 Hydralazine HCl (Apresoline) 10 mg PRN Q4HRS PRN IVP ELEVATED BP, SEE COMMENTS ; Start 03/14/16 at 21:00 Ondansetron HCl (Zofran) 4 mg PRN Q8HRS PRN IV NAUSEA/VOMITING; Start 03/14/16 at 21:00; Stop 03/15/16 at 09:17; Status DC Albuterol Sulfate (Ventolin Neb Soln) 2.5 mg PRN Q4HRS PRN NEB SHORTNESS OF BREATH; Start 03/14/16 at 21:00 Vancomycin HCl (Vanco Per Pharmacy) 1 each PRN DAILY PRN MC SEE COMMENTS Last administered on 03/15/16 02:35; Start 03/14/16 at 21:00; Stop 03/15/16 at 15:00 ; Status DC Morphine Sulfate 2 mg 2 mg PRN Q2HR PRN IV SEVERE PAIN; Start 03/14/16 at 21:00 Vancomycin HCl/ Sodium Chloride (Iv Sodium Chloride 0.9% 250ml) 250 ml @ 167 mls/hr Q8HRS IV Last administered on 03/15/16 14:34; Start 03/15/16 at 06:00; Stop 03/15/16 at 14:57; Status DC Vancomycin HCl 1 each 1X ONCE MC ; Start 03/15/16 at 21:30; Stop 03/15/16 at 21 :31; Status Cancel Acetaminophen (Tylenol) 650 mg PRN Q6HRS PRN PO MILD PAIN / TEMP; Start at 09:15 Ondansetron HCl (Zofran) 4 mg PRN Q6HRS PRN IV NAUSEA/VOMITING; Start 03/15/16 at 21:00 Naproxen 500 mg 500 mg BIDWMEALS PO Last administered on 03/17/16 08:31; Start 03/15/16 at 15:30 Ceftriaxone Sodium 1 gm/ Sodium Chloride 50 ml @ 100 mls/hr Q24H IV Last administered on 03/15/16 16:47; Start 03/15/16 at 15:30; Stop 03/16/16 at 12:13 ; Status DC Ceftriaxone Sodium/Sodium Chloride (Rocephin/Iv Sodium Chloride 0.9% 50ml) 50 ml @ 100 mls/hr Q24H IV Last administered on 03/16/16 15:03; Start 03/16/16 at 15:30 Active Scripts Active Ibuprofen 800 Mg Tablet 800 Mg PO PRN Q6HRS PRN Reported Proair Hfa Inhaler (Albuterol Sulfate) 8.5 Gm Hfa.aer.ad 1 Puff INH PRN Q6HRS PRN Vitals/I & O Vital Sign - Last 24 Hours 03/16/16 03/16/16 03/16/16 03/16/16 15:00 19:00 20:00 23:00 Temp 97.7 98.2 97.4 97.7 98.2 97.4 Pulse 61 68 60 Resp 20 19 19 B/P 114/57 118/72 120/81 Pulse Ox 96 93 96 O2 Delivery Room Air Room Air Room Air Room Air 03/17/16 03/17/16 03/17/16 03/17/16 00:16 01:16 03:00 07:00 Temp 97.5 97.5 Pulse 59 73 Resp 20 20 19 18 B/P 126/75 114/76 Pulse Ox 93 93 96 99 O2 Delivery Room Air Room Air Room Air Room Air Intake and Output 03/16/16 03/16/16 03/17/16 15:00 23:00 07:00 Intake Total 300 ml 300 ml 240 ml Balance 300 ml 300 ml 240 ml DEVIN LOMAX MD Mar 17, 2016 12:05
[2016-03-17] MEDS: FENTANYL PF 100 MCG/2 ML VIAL. IV PRN ×4 (13:46→16:04)
[2016-03-17] MEDS ORDERED: BACITRACIN 50,000 UNIT in IV NORMAL SALINE 1000ML BAG 1,000 ML IRR ONE ×5 (14:00→16:00)
[2016-03-17] MEDS ORDERED: PROCHLORPERAZINE 10 MG/2 ML VIAL. IV PRN (14:30)
[2016-03-17] MEDS ORDERED: HYDROMORPHONE 2 MG/ML VIAL. IV PRN (14:30)
[2016-03-17] MEDS ORDERED: DIPHENHYDRAMINE 50 MG/ML VIAL IV PRN (14:30)
[2016-03-17] MEDS ORDERED: MEPERIDINE PF 25 MG/ML VIAL. IV PRN (14:30)
[2016-03-17] MEDS ORDERED: MIDAZOLAM HCL 2 MG/2 ML VIAL. ONE (14:50)
[2016-03-17] MEDS ORDERED: PROPOFOL 20 ML IV ONE (14:51)
[2016-03-17] MEDS ORDERED: FENTANYL PF 100 MCG/2 ML VIAL. ONE (14:51)
[2016-03-17] MEDS ORDERED: DEXAMETHASONE SOD PHOS 20 MG/5 ML VIAL. ONE (14:51)
[2016-03-17] MEDS ORDERED: FAMOTIDINE 20 MG/2 ML VIAL ONE (14:51)
[2016-03-17] MEDS ORDERED: LIDOCAINE 2% 100 MG/5 ML DISP.SYRIN. ONE (14:51)
[2016-03-17] MEDS ORDERED: ONDANSETRON PF 4 MG/2 ML VIAL. ONE (14:51)
--- NOTE | 2016-03-17 14:53 | PDOC4 ---
Operative Note Operative Note Date of Operation: 03/17/2016 Preoperative Diagnosis: Left knee prepatellar septic Bursitis Postoperative Diagnosis: Left knee prepatellar septic Bursitis Operation Performed: Incisional Drainage of the left knee septic bursitis ( abscess), complicated CPT 27409 Surgeon: Paul Bah MD Dolphin Researcher: none Anesthesia: General Estimated Blood Loss: minimal Implants:none Specimens: Deep tissue swabs are sent for culture Surgical Indication: The patient is a 31 year old male who presented with a swollen, painful, and warm extremity. He has been on IV antibiotics the past few days, with some resolution of his symptoms. MRI was done that showed no intra-articular processes. Unfortunately he has developed a seropurulent blister with skin sloughing over the anterior aspect of his knee. I believe he would benefit from incisional drainage and packing of the are. The procedure was discussed with him and he elected to proceed. Description of Procedure: The patient was identified, marked, and the procedure was reconfirmed by myself prior to taking them to the operating room. IV antibiotics were held preoperatively until cultures were taken. The patient was positioned supine with a bump and underwent adequate general anesthesia. A non- sterile tourniquet was placed high on the left thigh. A culture was taken prior to prep. There was a sinus track that was followed down to the patella. The left leg was prepped and draped in a standard surgical fashion. After draping a final timeout was performed, and the limb was exsanguinated with an esmarch bandage. The tourniquet was brought up to 250 mm Hg. An incision was made over the anterior aspect of the knee into the patellar bursae. Purulence was encountered. There were multiple loculated areas that had to be broken up to access and probe. Tissues samples were taken and sent for culture. 3L of NS with bacitracin were used to pulse lavage the area. The tourniquet was taken down ,and hemostasis was achieved. inch packing was placed into the wound bed. The wound was left partially open for the packing to be pulled out over the next few days. The rest of the incision was loosely approximated with 3-0 nylon sutures. A sterile dressing was applied. Disposition: The patient was transferred to the bed and taken to the recovery room awake, alert, and in stable condition. Complications: None Post-operative Plan: He is to pull half the packing each day until the packing is fully removed. He can be wbat. I would recc an ID consult. He is to continue antibiotics per medicine/ ID. I will follow up his cultures. He can followup in my office in one week. PAUL BAH MD Mar 17, 2016 14:53
[2016-03-17] MEDS: NORMAL SALINE IV SCH (15:13)
[2016-03-17] MEDS: CEFTRIAXONE SODIUM IV SCH (15:13)
[2016-03-17] MEDS ORDERED: SEVOFLURANE 31 TO 60 MINUTES. IH ONE (15:30)
[2016-03-17] MEDS: MORPHINE SULFATE 4 MG/ML DISP.SYRIN. IV PRN ×2 (16:14→16:27)
[2016-03-17 19:00] VITALS: BP 130/73
[2016-03-17 23:38] VITALS: BP 108/73
[2016-03-18] MEDS: FENTANYL PF 100 MCG/2 ML VIAL. IV PRN (02:26)
[2016-03-18 05:35] LABS: BASO % 0 % (0-3); EOS % 0 % (0-3); HEMOGLOBIN 14.4 g/dL (13.0-17.5); LYMPH # 0.7 x10^3/uL (1.0-4.8); LYMPH % 4 % (24-48); MEAN CORPUSCULAR HEMOGLOBIN 26 pg (25-35); MEAN CORPUSCULAR HGB CONC 33 g/dL (31-37); MEAN CORPUSCULAR VOLUME 81 fL (79-100); MONO % 5 % (0-9); NEUT % 91 % (31-73); PLATELET COUNT 293 x10^3/uL (140-400); RED BLOOD COUNT 5.44 x10^6/uL (4.30-5.70); RED CELL DISTRIBUTION WIDTH 14.2 % (11.5-14.5); WHITE BLOOD COUNT 16.1 x10^3/uL (4.0-11.0)
[2016-03-18 06:10] LABS: CALCIUM 8.9 mg/dL (8.5-10.1); CREATININE 1.1 mg/dL (0.7-1.3); GFR 95.1; POTASSIUM 4.6 mmol/L (3.5-5.1)
[2016-03-18 07:45] VITALS: BP 127/72
[2016-03-18] MEDS: HYDROCODONE/APAP 5/325MG TABLET. PO PRN (08:26)
[2016-03-18] MEDS: NAPROXEN 500 MG TABLET PO SCH (08:26)
--- NOTE | 2016-03-18 11:01 | PDOC ---
PROGRESS NOTES Chief Complaint Chief Complaint 1. Pre patellar bursitis s/p I and D 03/17/16 2. Hx left talley cellulitis 2 mos ago 3. Left knee blister spontaneously ruptured History of Present Illness History of Present Illness HAd I and D last night by ortho Prelim cx and gram stain is staph aureus NO fevers,WBC 16 post sx Still signif pain to palpation and limited rOM ESR only 12 Vitals Vitals Vital Signs Date Time Temp Pulse Resp B/P Pulse Ox O2 Delivery O2 Flow Rate FiO2 03/18/16 08:26 Room Air 03/18/16 07:45 97.7 72 17 127/72 97 97.7 03/17/16 15:55 10 Physical Exam General: Alert, Oriented X3, Cooperative, No acute distress Heart: Regular rate Lungs: Clear Abdomen: Normal bowel sounds, Soft Extremities: No clubbing, No cyanosis, No edema, Normal pulses Labs LABS Laboratory Tests Test 03/18/16 04:30 White Blood Count 16.1x10^3/uL (4.0-11.0) Red Blood Count 5.44x10^6/uL (4.30-5.70) Hemoglobin 14.4g/dL (13.0-17.5) Hematocrit 44.0% (39.0-53.0) Mean Corpuscular Volume 81fL (79-100) Mean Corpuscular Hemoglobin 26pg (25-35) Mean Corpuscular Hemoglobin Concent 33g/dL (31-37) Red Cell Distribution Width 14.2% (11.5-14.5) Platelet Count 293x10^3/uL (140-400) Neutrophils (%) (Auto) 91% (31-73) Lymphocytes (%) (Auto) 4% (24-48) Monocytes (%) (Auto) 5% (0-9) Eosinophils (%) (Auto) 0% (0-3) Basophils (%) (Auto) 0% (0-3) Neutrophils # (Auto) 14.7x10^3uL (1.8-7.7) Lymphocytes # (Auto) 0.7x10^3/uL (1.0-4.8) Monocytes # (Auto) 0.7x10^3/uL (0.0-1.1) Eosinophils # (Auto) 0.0x10^3/uL (0.0-0.7) Basophils # (Auto) 0.0x10^3/uL (0.0-0.2) Sodium Level 141mmol/L (136-145) Potassium Level 4.6mmol/L (3.5-5.1) Chloride Level 103mmol/L (98-107) Carbon Dioxide Level 27mmol/L (21-32) Anion Gap 11 (6-14) Blood Urea Nitrogen 15mg/dL (8-26) Creatinine 1.1mg/dL (0.7-1.3) Estimated GFR (Cockcroft-Gault) 95.1 Glucose Level 130mg/dL (70-99) Calcium Level 8.9mg/dL (8.5-10.1) Review of Systems Review of Systems (+) knee pain, no fevers, no SOA Assessment and Plan Assessmemt and Plan Cont IV rocephin Await final BC/aspirate cx Cont NSAID Problems Medical Problems: (1) Abscess Status: Acute (2) Cellulitis of left knee Status: Acute Problems: Comment Review of Relevant I have reviewed the following items ander (where applicable) has been applied. Labs Laboratory Tests Test 03/17/16 04:25 03/18/16 04:30 White Blood Count 11.0x10^3/uL (4.0-11.0) 16.1x10^3/uL (4.0-11.0) Red Blood Count 5.44x10^6/uL (4.30-5.70) 5.44x10^6/uL (4.30-5.70) Hemoglobin 14.8g/dL (13.0-17.5) 14.4g/dL (13.0-17.5) Hematocrit 44.9% (39.0-53.0) 44.0% (39.0-53.0) Mean Corpuscular Volume 82fL (79-100) 81fL (79-100) Mean Corpuscular Hemoglobin 27pg (25-35) 26pg (25-35) Mean Corpuscular Hemoglobin Concent 33g/dL (31-37) 33g/dL (31-37) Red Cell Distribution Width 14.1% (11.5-14.5) 14.2% (11.5-14.5) Platelet Count 236x10^3/uL (140-400) 293x10^3/uL (140-400) Neutrophils (%) (Auto) 75% (31-73) 91% (31-73) Lymphocytes (%) (Auto) 13% (24-48) 4% (24-48) Monocytes (%) (Auto) 8% (0-9) 5% (0-9) Eosinophils (%) (Auto) 3% (0-3) 0% (0-3) Basophils (%) (Auto) 1% (0-3) 0% (0-3) Neutrophils # (Auto) 8.3x10^3uL (1.8-7.7) 14.7x10^3uL (1.8-7.7) Lymphocytes # (Auto) 1.5x10^3/uL (1.0-4.8) 0.7x10^3/uL (1.0-4.8) Monocytes # (Auto) 0.8x10^3/uL (0.0-1.1) 0.7x10^3/uL (0.0-1.1) Eosinophils # (Auto) 0.4x10^3/uL (0.0-0.7) 0.0x10^3/uL (0.0-0.7) Basophils # (Auto) 0.1x10^3/uL (0.0-0.2) 0.0x10^3/uL (0.0-0.2) Erythrocyte Sedimentation Rate 12 (0-15) Sodium Level 141mmol/L (136-145) Potassium Level 4.6mmol/L (3.5-5.1) Chloride Level 103mmol/L (98-107) Carbon Dioxide Level 27mmol/L (21-32) Anion Gap 11 (6-14) Blood Urea Nitrogen 15mg/dL (8-26) Creatinine 1.1mg/dL (0.7-1.3) Estimated GFR (Cockcroft-Gault) 95.1 Glucose Level 130mg/dL (70-99) Calcium Level 8.9mg/dL (8.5-10.1) Laboratory Tests Test 03/18/16 04:30 White Blood Count 16.1x10^3/uL (4.0-11.0) Red Blood Count 5.44x10^6/uL (4.30-5.70) Hemoglobin 14.4g/dL (13.0-17.5) Hematocrit 44.0% (39.0-53.0) Mean Corpuscular Volume 81fL (79-100) Mean Corpuscular Hemoglobin 26pg (25-35) Mean Corpuscular Hemoglobin Concent 33g/dL (31-37) Red Cell Distribution Width 14.2% (11.5-14.5) Platelet Count 293x10^3/uL (140-400) Neutrophils (%) (Auto) 91% (31-73) Lymphocytes (%) (Auto) 4% (24-48) Monocytes (%) (Auto) 5% (0-9) Eosinophils (%) (Auto) 0% (0-3) Basophils (%) (Auto) 0% (0-3) Neutrophils # (Auto) 14.7x10^3uL (1.8-7.7) Lymphocytes # (Auto) 0.7x10^3/uL (1.0-4.8) Monocytes # (Auto) 0.7x10^3/uL (0.0-1.1) Eosinophils # (Auto) 0.0x10^3/uL (0.0-0.7) Basophils # (Auto) 0.0x10^3/uL (0.0-0.2) Sodium Level 141mmol/L (136-145) Potassium Level 4.6mmol/L (3.5-5.1) Chloride Level 103mmol/L (98-107) Carbon Dioxide Level 27mmol/L (21-32) Anion Gap 11 (6-14) Blood Urea Nitrogen 15mg/dL (8-26) Creatinine 1.1mg/dL (0.7-1.3) Estimated GFR (Cockcroft-Gault) 95.1 Glucose Level 130mg/dL (70-99) Calcium Level 8.9mg/dL (8.5-10.1) Microbiology 03/14/16 Blood Culture - Preliminary, Resulted NO GROWTH AFTER 3 DAYS 03/16/16 Anaerobic/Aerobic Culture, Resulted Pending 03/16/16 Anaerobic Culture Result 1 (SHELIA), Resulted Pending 03/16/16 Aerobic Culture - Preliminary, Resulted 03/16/16 Aerobic Culture Result 1 (SHELIA) - Preliminary, Resulted Medications Current Medications Acetaminophen/ Hydrocodone Bitart (Lortab 5/325) 2 tab 1X ONCE PO Last administered on 03/14/16 20:15; Start 03/14/16 at 20:15; Stop 03/14/16 at 20:16 ; Status DC Acetaminophen/ Hydrocodone Bitart (Lortab 5/325) 2 tab PRN Q6HRS PRN PO MODERATE - SEVERE PAIN Last administered on 03/18/16 08:26; Start 03/14/16 at 20:30 Vancomycin HCl 1 each 1 each PRN DAILY PRN MC SEE COMMENTS; Start 03/14/16 at 20:30; Status Cancel Vancomycin HCl/ Sodium Chloride (Iv Sodium Chloride 0.9% 500ml Bag) 500 ml @ 250 mls/hr 1X ONCE IV Last administered on 03/14/16 20:30; Start 03/14/16 at 20:30; Stop 03/14/16 at 22:29; Status DC Acetaminophen (Tylenol) 325 mg PRN Q6HRS PRN PO MILD PAIN / TEMP; Start at 21:00; Stop 03/15/16 at 09:17; Status DC Acetaminophen/ Hydrocodone Bitart (Lortab 5/325) 1 tab PRN Q6HRS PRN PO MODERATE TO SEVERE PAIN Last administered on 03/18/16 02:25; Start 03/14/16 at 21:00 Hydralazine HCl (Apresoline) 10 mg PRN Q4HRS PRN IVP ELEVATED BP, SEE COMMENTS ; Start 03/14/16 at 21:00 Ondansetron HCl (Zofran) 4 mg PRN Q8HRS PRN IV NAUSEA/VOMITING; Start 03/14/16 at 21:00; Stop 03/15/16 at 09:17; Status DC Albuterol Sulfate (Ventolin Neb Soln) 2.5 mg PRN Q4HRS PRN NEB SHORTNESS OF BREATH; Start 03/14/16 at 21:00 Vancomycin HCl (Vanco Per Pharmacy) 1 each PRN DAILY PRN MC SEE COMMENTS Last administered on 03/15/16 02:35; Start 03/14/16 at 21:00; Stop 03/15/16 at 15:00 ; Status DC Morphine Sulfate 2 mg 2 mg PRN Q2HR PRN IV SEVERE PAIN; Start 03/14/16 at 21:00 Vancomycin HCl/ Sodium Chloride (Iv Sodium Chloride 0.9% 250ml) 250 ml @ 167 mls/hr Q8HRS IV Last administered on 03/15/16 14:34; Start 03/15/16 at 06:00; Stop 03/15/16 at 14:57; Status DC Vancomycin HCl 1 each 1X ONCE MC ; Start 03/15/16 at 21:30; Stop 03/15/16 at 21 :31; Status Cancel Acetaminophen (Tylenol) 650 mg PRN Q6HRS PRN PO MILD PAIN / TEMP; Start at 09:15 Ondansetron HCl (Zofran) 4 mg PRN Q6HRS PRN IV NAUSEA/VOMITING; Start 03/15/16 at 21:00 Naproxen 500 mg 500 mg BIDWMEALS PO Last administered on 03/18/16 08:26; Start 03/15/16 at 15:30 Ceftriaxone Sodium 1 gm/ Sodium Chloride 50 ml @ 100 mls/hr Q24H IV Last administered on 03/15/16 16:47; Start 03/15/16 at 15:30; Stop 03/16/16 at 12:13 ; Status DC Ceftriaxone Sodium 2 gm/ Sodium Chloride 50 ml @ 100 mls/hr Q24H IV Last administered on 03/17/16 15:13; Start 03/16/16 at 15:30 Bacitracin 80981 unit/Sodium Chloride 1,000 ml @ 1,000 mls/hr 1X PERIOP ONCE IRR ; Start 03/17/16 at 16:00; Stop 03/17/16 at 16:59; Status DC Bacitracin 35220 unit/Sodium Chloride 1,000 ml @ 1,000 mls/hr 1X PERIOP ONCE IRR Last administered on 03/17/16 14:50; Start 03/17/16 at 14:00; Stop at 14:59; Status DC Bacitracin/Sodium Chloride (Iv Sodium Chloride 0.9% 1000ml Bag) 1,000 ml @ 1, 000 mls/hr 1X PERIOP ONCE IRR ; Start 03/17/16 at 16:00; Stop 03/17/16 at 16:59 ; Status DC Fentanyl Citrate (Fentanyl 2ml Vial) 50 mcg PRN Q5MIN PRN IV Acute Pain Last administered on 03/18/16 02:26; Start 03/17/16 at 14:30; Stop 03/18/16 at 14:29 Morphine Sulfate 4 mg PRN Q10MIN PRN IV Moderate Pain Last administered on 03/17t 16:27; Start 03/17/16 at 14:30; Stop 03/18/16 at 14:29 Hydromorphone HCl (Dilaudid) 0.4 mg PRN Q10MIN PRN IV Moderate to severe pain; Start 03/17/16 at 14:30; Stop 03/18/16 at 14:29 Meperidine HCl (Demerol) 12.5 mg PRN Q5MIN PRN IV SHIVERING; Start 03/17/16 at 14:30; Stop 03/18/16 at 14:29 Prochlorperazine Edisylate (Compazine) 5 mg PRN Q6HRS PRN IV Nausea/Vomiting, 1st Choice; Start 03/17/16 at 14:30; Stop 03/18/16 at 14:29 Diphenhydramine HCl (Benadryl) 12.5 mg PRN Q2HR PRN IV ITCHING; Start 03/17/16 at 14:30; Stop 03/18/16 at 14:29 Midazolam HCl (Versed) 2 mg STK-MED ONCE .ROUTE ; Start 03/17/16 at 14:50; Stop 03/17/16 at 14:51; Status DC Fentanyl Citrate 100 mcg 100 mcg STK-MED ONCE .ROUTE ; Start 03/17/16 at 14:51; Stop 03/17/16 at 14:52; Status DC Propofol (Diprivan) 20 ml @ As Directed STK-MED ONCE IV ; Start 03/17/16 at 14: 51; Stop 03/17/16 at 14:52; Status DC Lidocaine HCl 100 mg STK-MED ONCE .ROUTE ; Start 03/17/16 at 14:51; Stop at 14:52; Status DC Dexamethasone Sodium Phosphate (Decadron) 20 mg STK-MED ONCE .ROUTE ; Start at 14:51; Stop 03/17/16 at 14:52; Status DC Famotidine (Pepcid) 20 mg STK-MED ONCE .ROUTE ; Start 03/17/16 at 14:51; Stop at 14:52; Status DC Ondansetron HCl (Zofran) 4 mg STK-MED ONCE .ROUTE ; Start 03/17/16 at 14:51; Stop 03/17/16 at 14:52; Status DC Sevoflurane (Ultane) 30 ml STK-MED ONCE IH ; Start 03/17/16 at 15:30; Stop 03/17 at 15:31; Status DC Active Scripts Active Ibuprofen 800 Mg Tablet 800 Mg PO PRN Q6HRS PRN Reported Proair Hfa Inhaler (Albuterol Sulfate) 8.5 Gm Hfa.aer.ad 1 Puff INH PRN Q6HRS PRN Vitals/I & O Vital Sign - Last 24 Hours 03/17/16 03/17/16 03/17/16 03/17/16 11:00 13:46 13:51 13:56 Temp 97.9 97.9 Pulse 74 Resp 18 18 18 B/P 117/74 Pulse Ox 95 100 100 99 O2 Delivery Room Air Simple Mask Simple Mask Room Air O2 Flow Rate 10.0 10.0 03/17/16 03/17/16 03/17/16 03/17/16 15:40 15:40 15:55 16:04 Temp 97.9 97.9 Pulse 84 68 Resp 16 18 16 B/P 154/104 138/81 Pulse Ox 100 100 98 O2 Delivery Mask Simple Mask Simple Mask Room Air O2 Flow Rate 10 10 10 03/17/16 03/17/16 03/17/16 03/17/16 16:10 16:14 16:25 16:27 Temp 98.2 98.2 Pulse 80 68 Resp 18 18 18 18 B/P 147/87 145/77 Pulse Ox 98 94 95 95 O2 Delivery Room Air Room Air Room Air Room Air 03/17/16 03/17/16 03/17/16 03/17/16 16:40 19:00 20:00 23:38 Temp 98.3 98.0 98.0 98.3 98.0 98.0 Pulse 63 91 84 Resp 16 18 20 B/P 126/74 130/73 108/73 Pulse Ox 96 96 93 O2 Delivery Room Air Room Air Room Air Room Air 03/18/16 03/18/16 03/18/16 03/18/16 02:25 02:26 02:56 03:25 Resp 18 18 18 18 O2 Delivery Room Air Room Air Room Air Room Air 03/18/16 03/18/16 07:45 08:26 Temp 97.7 97.7 Pulse 72 Resp 17 B/P 127/72 Pulse Ox 97 O2 Delivery Room Air Room Air Intake and Output 03/17/16 03/17/16 03/18/16 15:00 23:00 07:00 Intake Total 120 ml 350 ml 500 ml Output Total 5 ml Balance 120 ml 345 ml 500 ml DEVIN LOMAX MD Mar 18, 2016 11:01
[2016-03-18 11:20] VITALS: BP 124/63
[2016-03-18 11:39] LABS: PLT ESTIMATE ADEQUATE (ADEQUATE)
--- NOTE | 2016-03-18 12:45 | PDOC ---
PROGRESS NOTES Subjective Subjective No acute Problems overnight: No fevers, chills, nausea, vomiting. Pain still in the left lower extremity. wbc has increased since surgery to 16. cultures have come back positive for MRSA. Objective Vital Signs Vital Signs Date Time Temp Pulse Resp B/P Pulse Ox O2 Delivery O2 Flow Rate FiO2 03/18/16 11:20 97.9 84 18 124/63 97 Room Air 97.9 03/17/16 15:55 10 Physical Exam LEFT LOWER EXTREMITY: dressing c/d/i. Left leg with less warmth. Dressing removed, some of the packing was discontinued. NEUROVASCULARLY INTACT distally. Labs Laboratory Tests Test 03/17/16 04:25 03/18/16 04:30 White Blood Count 11.0x10^3/uL (4.0-11.0) 16.1x10^3/uL (4.0-11.0) Red Blood Count 5.44x10^6/uL (4.30-5.70) 5.44x10^6/uL (4.30-5.70) Hemoglobin 14.8g/dL (13.0-17.5) 14.4g/dL (13.0-17.5) Hematocrit 44.9% (39.0-53.0) 44.0% (39.0-53.0) Mean Corpuscular Volume 82fL (79-100) 81fL (79-100) Mean Corpuscular Hemoglobin 27pg (25-35) 26pg (25-35) Mean Corpuscular Hemoglobin Concent 33g/dL (31-37) 33g/dL (31-37) Red Cell Distribution Width 14.1% (11.5-14.5) 14.2% (11.5-14.5) Platelet Count 236x10^3/uL (140-400) 293x10^3/uL (140-400) Neutrophils (%) (Auto) 75% (31-73) 91% (31-73) Lymphocytes (%) (Auto) 13% (24-48) 4% (24-48) Monocytes (%) (Auto) 8% (0-9) 5% (0-9) Eosinophils (%) (Auto) 3% (0-3) 0% (0-3) Basophils (%) (Auto) 1% (0-3) 0% (0-3) Neutrophils # (Auto) 8.3x10^3uL (1.8-7.7) 14.7x10^3uL (1.8-7.7) Lymphocytes # (Auto) 1.5x10^3/uL (1.0-4.8) 0.7x10^3/uL (1.0-4.8) Monocytes # (Auto) 0.8x10^3/uL (0.0-1.1) 0.7x10^3/uL (0.0-1.1) Eosinophils # (Auto) 0.4x10^3/uL (0.0-0.7) 0.0x10^3/uL (0.0-0.7) Basophils # (Auto) 0.1x10^3/uL (0.0-0.2) 0.0x10^3/uL (0.0-0.2) Erythrocyte Sedimentation Rate 12 (0-15) Segmented Neutrophils % 75% (35-66) Band Neutrophils % 9% (0-9) Lymphocytes % 11% (24-48) Monocytes % 5% (0-10) Platelet Estimate Adequate (ADEQUATE) Large Platelets Few Giant Platelets Occ Sodium Level 141mmol/L (136-145) Potassium Level 4.6mmol/L (3.5-5.1) Chloride Level 103mmol/L (98-107) Carbon Dioxide Level 27mmol/L (21-32) Anion Gap 11 (6-14) Blood Urea Nitrogen 15mg/dL (8-26) Creatinine 1.1mg/dL (0.7-1.3) Estimated GFR (Cockcroft-Gault) 95.1 Glucose Level 130mg/dL (70-99) Calcium Level 8.9mg/dL (8.5-10.1) Laboratory Tests Test 03/18/16 04:30 White Blood Count 16.1x10^3/uL (4.0-11.0) Red Blood Count 5.44x10^6/uL (4.30-5.70) Hemoglobin 14.4g/dL (13.0-17.5) Hematocrit 44.0% (39.0-53.0) Mean Corpuscular Volume 81fL (79-100) Mean Corpuscular Hemoglobin 26pg (25-35) Mean Corpuscular Hemoglobin Concent 33g/dL (31-37) Red Cell Distribution Width 14.2% (11.5-14.5) Platelet Count 293x10^3/uL (140-400) Neutrophils (%) (Auto) 91% (31-73) Lymphocytes (%) (Auto) 4% (24-48) Monocytes (%) (Auto) 5% (0-9) Eosinophils (%) (Auto) 0% (0-3) Basophils (%) (Auto) 0% (0-3) Neutrophils # (Auto) 14.7x10^3uL (1.8-7.7) Lymphocytes # (Auto) 0.7x10^3/uL (1.0-4.8) Monocytes # (Auto) 0.7x10^3/uL (0.0-1.1) Eosinophils # (Auto) 0.0x10^3/uL (0.0-0.7) Basophils # (Auto) 0.0x10^3/uL (0.0-0.2) Segmented Neutrophils % 75% (35-66) Band Neutrophils % 9% (0-9) Lymphocytes % 11% (24-48) Monocytes % 5% (0-10) Platelet Estimate Adequate (ADEQUATE) Large Platelets Few Giant Platelets Occ Sodium Level 141mmol/L (136-145) Potassium Level 4.6mmol/L (3.5-5.1) Chloride Level 103mmol/L (98-107) Carbon Dioxide Level 27mmol/L (21-32) Anion Gap 11 (6-14) Blood Urea Nitrogen 15mg/dL (8-26) Creatinine 1.1mg/dL (0.7-1.3) Estimated GFR (Cockcroft-Gault) 95.1 Glucose Level 130mg/dL (70-99) Calcium Level 8.9mg/dL (8.5-10.1) Assessment Assessment POD# 1, S/P I&D with packing for left prepatellar bursitis, MRSA positive. Problems: Plan Plan of Care -The patient's antibiotics he is on does not cover MRSA, they need to be changed. His cultures are sensitive to bactrim or vancomycin. -Pain is improving. -He will need to discontinue some of the packing each day until it is all gone, over the next 3-4 days. Keep the knee covered with a dressing. -Again, I would recommend and ID consult. At this point he has had more than one staph infection in the past few months requiring surgical intervention. He may need longer term antibiotics. -Ok to weightbear as tolerated. PAUL BAH MD Mar 18, 2016 12:45
[2016-03-18] MEDS: MORPHINE SULFATE 4 MG/ML DISP.SYRIN. IV PRN (15:13)
[2016-03-18] MEDS: VANCOMYCIN PER PHARMACY MC PRN (15:15)
[2016-03-18 15:55] VITALS: BP 129/75
[2016-03-18] MEDS ORDERED: VANCOMYCIN 2 GM in IV NORMAL SALINE 500ML BAG 500 ML IV ONE (16:00)
[2016-03-18 19:30] VITALS: BP 121/73
[2016-03-18] MEDS: OXYCODONE/APAP 7.5/325 TABLET. PO PRN (23:01)
[2016-03-18 23:10] VITALS: BP 111/61
[2016-03-18] MEDS: VANCOMYCIN 1.25 GM in IV NORMAL SALINE 250ML 250 ML IV SCH (23:45)
[2016-03-19 03:05] VITALS: BP 106/57
[2016-03-19 07:00] VITALS: BP 126/75
[2016-03-19] MEDS: VANCOMYCIN 1.25 GM in IV NORMAL SALINE 250ML 250 ML IV SCH ×3 (07:58→23:34)
[2016-03-19] MEDS: OXYCODONE/APAP 7.5/325 TABLET. PO PRN ×3 (07:58→21:31)
[2016-03-19 11:00] VITALS: BP 120/70
--- NOTE | 2016-03-19 11:43 | PDOC ---
PROGRESS NOTES Chief Complaint Chief Complaint 1.MRSA left knee 2. patellar bursitis s/p I and D 03/17/16 2. Hx left talley cellulitis (Dec 2015, NOT mRSA per pt) History of Present Illness History of Present Illness Left knee drainage turned out to be mRSA No fevers LAst WBC 16 (on day 1 post op) - ordered rpt today Lots of questions today, educated about what MRSa is, treatment, cause, etc NO diarrhea Left knee has lots of drainage, some pus like, mildly bloody - indwelling drain visible Pt claims his left talley cellulitis in Dec was NOT mrsa Vitals Vitals Vital Signs Date Time Temp Pulse Resp B/P Pulse Ox O2 Delivery O2 Flow Rate FiO2 03/19/16 07:58 Room Air 03/19/16 07:00 98.0 78 18 126/75 99 98.0 03/18/16 23:01 10.0 Physical Exam General: Alert, Oriented X3, Cooperative, No acute distress Heart: Regular rate Lungs: Clear Abdomen: Normal bowel sounds, Soft Extremities: No clubbing, No cyanosis, No edema, Normal pulses Review of Systems Review of Systems still left knee pain and limited ROM, no feveres, no diarrhea Assessment and Plan Assessmemt and Plan cont IV vanc ID expertise on future plans Signif time today Await rpt CBC today Problems Medical Problems: (1) Abscess Status: Acute (2) Cellulitis of left knee Status: Acute Problems: Comment Review of Relevant I have reviewed the following items ander (where applicable) has been applied. Labs Laboratory Tests Test 03/18/16 04:30 White Blood Count 16.1x10^3/uL (4.0-11.0) Red Blood Count 5.44x10^6/uL (4.30-5.70) Hemoglobin 14.4g/dL (13.0-17.5) Hematocrit 44.0% (39.0-53.0) Mean Corpuscular Volume 81fL (79-100) Mean Corpuscular Hemoglobin 26pg (25-35) Mean Corpuscular Hemoglobin Concent 33g/dL (31-37) Red Cell Distribution Width 14.2% (11.5-14.5) Platelet Count 293x10^3/uL (140-400) Neutrophils (%) (Auto) 91% (31-73) Lymphocytes (%) (Auto) 4% (24-48) Monocytes (%) (Auto) 5% (0-9) Eosinophils (%) (Auto) 0% (0-3) Basophils (%) (Auto) 0% (0-3) Neutrophils # (Auto) 14.7x10^3uL (1.8-7.7) Lymphocytes # (Auto) 0.7x10^3/uL (1.0-4.8) Monocytes # (Auto) 0.7x10^3/uL (0.0-1.1) Eosinophils # (Auto) 0.0x10^3/uL (0.0-0.7) Basophils # (Auto) 0.0x10^3/uL (0.0-0.2) Segmented Neutrophils % 75% (35-66) Band Neutrophils % 9% (0-9) Lymphocytes % 11% (24-48) Monocytes % 5% (0-10) Platelet Estimate Adequate (ADEQUATE) Large Platelets Few Giant Platelets Occ Sodium Level 141mmol/L (136-145) Potassium Level 4.6mmol/L (3.5-5.1) Chloride Level 103mmol/L (98-107) Carbon Dioxide Level 27mmol/L (21-32) Anion Gap 11 (6-14) Blood Urea Nitrogen 15mg/dL (8-26) Creatinine 1.1mg/dL (0.7-1.3) Estimated GFR (Cockcroft-Gault) 95.1 Glucose Level 130mg/dL (70-99) Calcium Level 8.9mg/dL (8.5-10.1) Microbiology 03/14/16 Blood Culture - Preliminary, Resulted NO GROWTH AFTER 4 DAYS 03/17/16 Gram Stain - Final, Complete Medications Current Medications Acetaminophen/ Hydrocodone Bitart (Lortab 5/325) 2 tab 1X ONCE PO Last administered on 03/14/16t 20:15; Start 03/14/16 at 20:15; Stop 03/14/16 at 20:16 ; Status DC Acetaminophen/ Hydrocodone Bitart (Lortab 5/325) 2 tab PRN Q6HRS PRN PO MODERATE - SEVERE PAIN Last administered on 03/18/16 08:26; Start 03/14/16 at 20:30; Stop 03/18/16 at 12:34; Status DC Vancomycin HCl 1 each 1 each PRN DAILY PRN MC SEE COMMENTS; Start 03/14/16 at 20:30; Status Cancel Vancomycin HCl/ Sodium Chloride (Iv Sodium Chloride 0.9% 500ml Bag) 500 ml @ 250 mls/hr 1X ONCE IV Last administered on 03/14/16 20:30; Start 03/14/16 at 20:30; Stop 03/14/16 at 22:29; Status DC Acetaminophen (Tylenol) 325 mg PRN Q6HRS PRN PO MILD PAIN / TEMP; Start at 21:00; Stop 03/15/16 at 09:17; Status DC Acetaminophen/ Hydrocodone Bitart (Lortab 5/325) 1 tab PRN Q6HRS PRN PO MODERATE TO SEVERE PAIN Last administered on 03/18/16 02:25; Start 03/14/16 at 21:00; Stop 03/18/16 at 12:34; Status DC Hydralazine HCl (Apresoline) 10 mg PRN Q4HRS PRN IVP ELEVATED BP, SEE COMMENTS ; Start 03/14/16 at 21:00; Stop 03/18/16 at 12:34; Status DC Ondansetron HCl (Zofran) 4 mg PRN Q8HRS PRN IV NAUSEA/VOMITING; Start 03/14/16 at 21:00; Stop 03/15/16 at 09:17; Status DC Albuterol Sulfate (Ventolin Neb Soln) 2.5 mg PRN Q4HRS PRN NEB SHORTNESS OF BREATH; Start 03/14/16 at 21:00; Stop 03/18/16 at 12:34; Status DC Vancomycin HCl (Vanco Per Pharmacy) 1 each PRN DAILY PRN MC SEE COMMENTS Last administered on 03/15/16 02:35; Start 03/14/16 at 21:00; Stop 03/15/16 at 15:00 ; Status DC Morphine Sulfate 2 mg 2 mg PRN Q2HR PRN IV SEVERE PAIN Last administered on 11:06; Start 03/14/16 at 21:00; Stop 03/18/16 at 12:34; Status DC Vancomycin HCl/ Sodium Chloride (Iv Sodium Chloride 0.9% 250ml) 250 ml @ 167 mls/hr Q8HRS IV Last administered on 03/15/16 14:34; Start 03/15/16 at 06:00; Stop 03/15/16 at 14:57; Status DC Vancomycin HCl 1 each 1X ONCE MC ; Start 03/15/16 at 21:30; Stop 03/15/16 at 21 :31; Status Cancel Acetaminophen (Tylenol) 650 mg PRN Q6HRS PRN PO MILD PAIN / TEMP; Start at 09:15; Stop 03/18/16 at 12:34; Status DC Ondansetron HCl (Zofran) 4 mg PRN Q6HRS PRN IV NAUSEA/VOMITING; Start 03/15/16 at 21:00; Stop 03/18/16 at 12:34; Status DC Naproxen 500 mg 500 mg BIDWMEALS PO Last administered on 03/18/16 08:26; Start 03/15/16 at 15:30; Stop 03/18/16 at 12:34; Status DC Ceftriaxone Sodium 1 gm/ Sodium Chloride 50 ml @ 100 mls/hr Q24H IV Last administered on 03/15/16 16:47; Start 03/15/16 at 15:30; Stop 03/16/16 at 12:13 ; Status DC Ceftriaxone Sodium 2 gm/ Sodium Chloride 50 ml @ 100 mls/hr Q24H IV Last administered on 03/17/16 15:13; Start 03/16/16 at 15:30; Stop 03/18/16 at 12:34 ; Status DC Bacitracin 72124 unit/Sodium Chloride 1,000 ml @ 1,000 mls/hr 1X PERIOP ONCE IRR ; Start 03/17/16 at 16:00; Stop 03/17/16 at 16:59; Status DC Bacitracin 56608 unit/Sodium Chloride 1,000 ml @ 1,000 mls/hr 1X PERIOP ONCE IRR Last administered on 03/17/16 14:50; Start 03/17/16 at 14:00; Stop at 14:59; Status DC Bacitracin/Sodium Chloride (Iv Sodium Chloride 0.9% 1000ml Bag) 1,000 ml @ 1, 000 mls/hr 1X PERIOP ONCE IRR ; Start 03/17/16 at 16:00; Stop 03/17/16 at 16:59 ; Status DC Fentanyl Citrate (Fentanyl 2ml Vial) 50 mcg PRN Q5MIN PRN IV Acute Pain Last administered on 03/18/16t 02:26; Start 03/17/16 at 14:30; Stop 03/18/16 at 12:34 ; Status DC Morphine Sulfate 4 mg PRN Q10MIN PRN IV Moderate Pain Last administered on 03/17t 16:27; Start 03/17/16 at 14:30; Stop 03/18/16 at 12:34; Status DC Hydromorphone HCl (Dilaudid) 0.4 mg PRN Q10MIN PRN IV Moderate to severe pain; Start 03/17/16 at 14:30; Stop 03/18/16 at 12:34; Status DC Meperidine HCl (Demerol) 12.5 mg PRN Q5MIN PRN IV SHIVERING; Start 03/17/16 at 14:30; Stop 03/18/16 at 12:34; Status DC Prochlorperazine Edisylate (Compazine) 5 mg PRN Q6HRS PRN IV Nausea/Vomiting, 1st Choice; Start 03/17/16 at 14:30; Stop 03/18/16 at 12:34; Status DC Diphenhydramine HCl (Benadryl) 12.5 mg PRN Q2HR PRN IV ITCHING; Start 03/17/16 at 14:30; Stop 03/18/16 at 12:34; Status DC Midazolam HCl (Versed) 2 mg STK-MED ONCE .ROUTE ; Start 03/17/16 at 14:50; Stop 03/17/16 at 14:51; Status DC Fentanyl Citrate 100 mcg 100 mcg STK-MED ONCE .ROUTE ; Start 03/17/16 at 14:51; Stop 03/17/16 at 14:52; Status DC Propofol (Diprivan) 20 ml @ As Directed STK-MED ONCE IV ; Start 03/17/16 at 14: 51; Stop 03/17/16 at 14:52; Status DC Lidocaine HCl 100 mg STK-MED ONCE .ROUTE ; Start 03/17/16 at 14:51; Stop at 14:52; Status DC Dexamethasone Sodium Phosphate (Decadron) 20 mg STK-MED ONCE .ROUTE ; Start at 14:51; Stop 03/17/16 at 14:52; Status DC Famotidine (Pepcid) 20 mg STK-MED ONCE .ROUTE ; Start 03/17/16 at 14:51; Stop at 14:52; Status DC Ondansetron HCl (Zofran) 4 mg STK-MED ONCE .ROUTE ; Start 03/17/16 at 14:51; Stop 03/17/16 at 14:52; Status DC Sevoflurane (Ultane) 30 ml STK-MED ONCE IH ; Start 03/17/16 at 15:30; Stop 03/17 at 15:31; Status DC Oxycodone/ Acetaminophen (Percocet 7.5/ 325) 1 tab PRN Q4HRS PRN PO PAIN Last administered on 03/19/16 07:58; Start 03/18/16 at 14:30 Morphine Sulfate 4 mg PRN Q2HR PRN IV PAIN Last administered on 03/18/16 15:13 ; Start 03/18/16 at 14:30 Vancomycin HCl 1 each 1 each PRN DAILY PRN MC SEE COMMENTS Last administered on 03/18/16 15:15; Start 03/18/16 at 15:15 Vancomycin HCl 2 gm/Sodium Chloride 500 ml @ 250 mls/hr 1X ONCE IV Last administered on 03/18/16 16:20; Start 03/18/16 at 16:00; Stop 03/18/16 at 17:59 ; Status DC Vancomycin HCl/ Sodium Chloride (Iv Sodium Chloride 0.9% 250ml) 250 ml @ 167 mls/hr Q8H IV Last administered on 03/19/16 07:58; Start 03/19/16 at 00:00 Vancomycin HCl 1 each 1X ONCE MC ; Start 03/19/16 at 15:30; Stop 03/19/16 at 15 :31 Active Scripts Active Ibuprofen 800 Mg Tablet 800 Mg PO PRN Q6HRS PRN Reported Proair Hfa Inhaler (Albuterol Sulfate) 8.5 Gm Hfa.aer.ad 1 Puff INH PRN Q6HRS PRN Vitals/I & O Vital Sign - Last 24 Hours 03/18/16 03/18/16 03/18/16 03/18/16 15:13 15:55 19:30 20:03 Temp 98.1 97.9 98.1 97.9 Pulse 65 76 Resp 17 20 B/P 129/75 121/73 Pulse Ox 99 97 O2 Delivery Room Air Room Air Room Air Room Air 03/18/16 03/18/16 03/19/16 03/19/16 23:01 23:10 00:01 03:05 Temp 97.5 98.5 97.5 98.5 Pulse 64 62 Resp 16 18 14 18 B/P 111/61 106/57 Pulse Ox 97 99 95 O2 Delivery Room Air Room Air Room Air Room Air O2 Flow Rate 10.0 03/19/16 03/19/16 07:00 07:58 Temp 98.0 98.0 Pulse 78 Resp 18 B/P 126/75 Pulse Ox 99 O2 Delivery Room Air Intake and Output 03/18/16 03/18/16 03/19/16 15:00 23:00 07:00 Intake Total 236 ml 730 ml Balance 236 ml 730 ml DEVIN LOMAX MD Mar 19, 2016 11:43
--- NOTE | 2016-03-19 12:13 | PDOC ---
Infectious Disease Note Vital Sign Vital Signs Vital Signs Date Time Temp Pulse Resp B/P Pulse Ox O2 Delivery O2 Flow Rate FiO2 03/19/16 07:58 Room Air 03/19/16 07:00 98.0 78 18 126/75 99 98.0 03/18/16 23:01 10.0 Labs Micro BLOOD CULTURE Preliminary NO GROWTH AFTER 4 DAYS Left knee. 03/17 intra-op cx AEROBIC RES 1 Preliminary Staphylococcus aureus Left knee. 03/16 ANAEROBIC RES 1 Preliminary No anaerobes recovered in 48 hours. AEROBIC RES 1 Final Methicillin - resistant Staphylococcus aureus Antibiotic RSLT#1 Ciprofloxacin R Clindamycin S Erythromycin S Gentamicin S Levofloxacin I Linezolid S Oxacillin R Penicillin R Rifampin S Tetracycline S Trimethoprim/Sulfa S Vancomycin S Objective Assessment Septic prepatellar bursitis. s/p I and D, 03/17. Intra-op cx: Staph aureus so far -Swab culture 03/16. MRSA Eczema -Usually controlled with topical hydrocortisone. + flaring Leukocytosis. improved, now up -steroids 03/17. h/o frequent skin infections -s/p I and D, LLE DEC 2015. clindamycin -Lives alone, works in [employer], has a dog Plan Plan of Care Cont vanc Change to po soon await final intra-op cultures Monitor WBC, Cr and temp Local wound care Thank you [phone] D/w mother Attending Co-Sign Attending Co-Sign The patient was seen and interviewed as well as examined at the bedside. The chart was reviewed. The case was discussed. Agree with the plan of care. LEE LÓPEZ APRN Mar 19, 2016 12:13 JONAH BERGERON MD Mar 19, 2016 14:40
[2016-03-19 15:00] VITALS: BP 119/80
[2016-03-19 15:33] LABS: BASO # 0.1 x10^3/uL (0.0-0.2); BASO % 1 % (0-3); EOS % 2 % (0-3); HEMATOCRIT 44.2 % (39.0-53.0); HEMOGLOBIN 14.4 g/dL (13.0-17.5); LYMPH # 1.5 x10^3/uL (1.0-4.8); LYMPH % 13 % (24-48); MEAN CORPUSCULAR HEMOGLOBIN 26 pg (25-35); MEAN CORPUSCULAR HGB CONC 33 g/dL (31-37); MEAN CORPUSCULAR VOLUME 81 fL (79-100); MONO % 9 % (0-9); NEUT % 75 % (31-73); PLATELET COUNT 293 x10^3/uL (140-400); RED BLOOD COUNT 5.46 x10^6/uL (4.30-5.70); RED CELL DISTRIBUTION WIDTH 14.5 % (11.5-14.5); WHITE BLOOD COUNT 11.8 x10^3/uL (4.0-11.0)
[2016-03-19 15:52] LABS: CALCIUM 8.7 mg/dL (8.5-10.1); CREATININE 1.2 mg/dL (0.7-1.3)
[2016-03-19] MEDS: VANCOMYCIN PER PHARMACY MC PRN (16:04)
[2016-03-19 19:00] VITALS: BP 113/64
[2016-03-19 23:00] VITALS: BP 124/76
--- NOTE | 2016-03-19 23:29 | CONS ---
DATE OF CONSULTATION: 03/18/2016 REFERRING PHYSICIAN: Dr. Isabel. REASON FOR CONSULTATION: MRSA infection. HISTORY OF PRESENT ILLNESS: This patient is a 31-year-old male with a history of eczema, who was admitted on the 14 of March after presenting with a 3-day history of left knee redness and swelling associated with decreased range of motion and weightbearing due to pain. He had developed pus-filled blisters that were draining. He denies injury/trauma or previous surgeries. He has a history of kidney infections in various sites of his body occurring every couple of months or so. Most recently he developed an area on his hip that was self-limiting. Prior to that he was seen in the ER in December 2015 with cellulitis with abscess, status post I and D, no cultures were obtained at that time. He was released on clindamycin. He has noticed his eczema has been flaring up lately, which had been fairly controlled with topical hydrocortisone. His initial white blood cell count on admission was 16,400. An x-ray of the left knee showed prepatellar soft tissue prominence. A followup MRI showed diffuse prepatellar soft tissue swelling with a small approximately 1.5 cm fluid collection. There were no intraarticular processes noted. The patient developed further blistering over the knee, which spontaneously drained. A swab culture grew MRSA. He was taken to the OR and underwent I and D over the anterior aspect of the knee. Multiloculated areas with purulent drainage noted. Intraoperative culture is growing Staphylococcus aureus. The patient is currently on vancomycin. PAST MEDICAL HISTORY: Asthma, eczema, and multiple skin infections, status post I and D. PAST SURGICAL HISTORY: No significant surgical history. SOCIAL HISTORY: The patient is single and lives at home alone. He is employed in radio. He is a nonsmoker. He denies history of alcohol or illicit drug use. He has a small dog. FAMILY HISTORY: Positive DVT and hypertension. ALLERGIES: IODINE. CURRENT MEDICATIONS: Vancomycin. Previously, on ceftriaxone. A dose of dexamethasone on 03/17. Other medications are available and have been reviewed on the MAY. REVIEW OF SYSTEMS: The patient continues to experience some left knee pain, though not as severe. It is difficult for him to bend the knee as well as bear full weight. The swelling in the leg is less. He denies fevers, chills, sweats, or aches. He denies headache, nasal/sinus congestion, or sore throat. He denies cough, shortness of air, or wheezing. He denies chest pain or palpitations. He denies nausea, vomiting, or diarrhea. He denies rash. PHYSICAL EXAMINATION: GENERAL: A healthy-appearing male, propped up in bed, eating lunch. VITAL SIGNS: Afebrile. Blood pressure 126/75, heart rate 78, respiratory rate 18, pulse oximetry is 99% on room air. HEENT: Pupils are equally round, and reactive. Normal conjunctivae. Oral mucosa is pink and moist. NECK: Supple. No adenopathy present. LUNGS: Clear to auscultation. HEART: Normal S1 and S2. No murmur appreciated. ABDOMEN: Bowel sounds are present. Soft and nontender. EXTREMITIES: No gross edema or cyanosis. Left knee is swollen, warm and tender. Surgical incision is sutured. There is a small wound with sanguineous drainage. SKIN: Without rash. NEUROLOGIC: Alert and oriented x 3. LABORATORY DATA: Recent WBC 16.1 from 11.0 on 03/17, hemoglobin 14.4, platelet count 293,000, segs 75%, bands 9%. Electrolytes are unremarkable, creatinine 1.1, BUN 15, glucose 130, albumin 4.0. Intraoperative culture, left knee: Staphylococcus aureus. Swab culture, left knee on 03/16: MRSA. IMAGING: Per HPI. IMPRESSION: 1. Septic prepatellar bursitis, status incision and drainage on 03/17/2015. 2. Methicillin-resistant Staphylococcus aureus. 3. Eczema. 4. Leukocytosis. 5. History of frequent skin infections. PLAN: Continue the vancomycin. Await final cultures/sensitivities. Monitor WBC count, creatinine, and temperature. Local wound care. Thank you, Dr. Isabel for asking us to participate in this patient's care. Should you have further questions or concerns, please call. JONAH BERGERON MD DR: TONY/liss JOB#: [id number] / [id number]
[2016-03-20] MEDS: OXYCODONE/APAP 7.5/325 TABLET. PO PRN ×5 (02:11→21:10)
[2016-03-20 06:23] LABS: BASO # 0.1 x10^3/uL (0.0-0.2); BASO % 1 % (0-3); EOS % 2 % (0-3); HEMATOCRIT 43.3 % (39.0-53.0); HEMOGLOBIN 14.3 g/dL (13.0-17.5); LYMPH # 1.6 x10^3/uL (1.0-4.8); LYMPH % 16 % (24-48); MEAN CORPUSCULAR HEMOGLOBIN 27 pg (25-35); MEAN CORPUSCULAR HGB CONC 33 g/dL (31-37); MEAN CORPUSCULAR VOLUME 81 fL (79-100); MONO % 8 % (0-9); NEUT % 73 % (31-73); PLATELET COUNT 286 x10^3/uL (140-400); RED BLOOD COUNT 5.34 x10^6/uL (4.30-5.70); RED CELL DISTRIBUTION WIDTH 14.4 % (11.5-14.5); WHITE BLOOD COUNT 9.8 x10^3/uL (4.0-11.0)
[2016-03-20 06:36] LABS: CALCIUM 9.1 mg/dL (8.5-10.1); GFR 106.2; POTASSIUM 4.3 mmol/L (3.5-5.1)
[2016-03-20 07:45] VITALS: BP 113/62
[2016-03-20] MEDS: VANCOMYCIN 1.25 GM in IV NORMAL SALINE 250ML 250 ML IV SCH (09:15)
--- NOTE | 2016-03-20 09:27 | PDOC ---
Infectious Disease Note Subjective Subjective Doing ok. Slept alright - still with pain ROS ROS GEN: Denies fevers, chills, sweats HEENT: Denies blurred vision, sore throat CV: Denies chest pain RESP: Denies shortness of air, cough GI: Denies n/v/d NEURO: Denies confusion, dizziness MSK: Denies weakness, joint pain/swelling Vital Sign Vital Signs Vital Signs Date Time Temp Pulse Resp B/P Pulse Ox O2 Delivery O2 Flow Rate FiO2 03/20/16 08:39 98 Room Air 03/20/16 02:55 98.5 85 18 98.5 Physical Exam PHYSICAL EXAM GENERAL: NAD, Alert HEENT: PERRL, OC/OP - clear NECK: Supple, no JVD, no LN LUNGS: Clear HEART: S1S2, no gallop, no murmur ABD: Soft, NT, no organomegaly, no rebound EXT: No edema, no cyanosis. Left knee with 1 plus edema. Still purulent drainage and packed. No warmth TIMBER HEWER: Alert, oriented x 3, no focal neurologic deficit SKIN: No rash IV: ok Labs Lab Laboratory Tests Test 03/19/16 15:25 03/20/16 05:00 03/20/16 05:50 White Blood Count 11.8x10^3/uL (4.0-11.0) 9.8x10^3/uL (4.0-11.0) Red Blood Count 5.46x10^6/uL (4.30-5.70) 5.34x10^6/uL (4.30-5.70) Hemoglobin 14.4g/dL (13.0-17.5) 14.3g/dL (13.0-17.5) Hematocrit 44.2% (39.0-53.0) 43.3% (39.0-53.0) Mean Corpuscular Volume 81fL (79-100) 81fL (79-100) Mean Corpuscular Hemoglobin 26pg (25-35) 27pg (25-35) Mean Corpuscular Hemoglobin Concent 33g/dL (31-37) 33g/dL (31-37) Red Cell Distribution Width 14.5% (11.5-14.5) 14.4% (11.5-14.5) Platelet Count 293x10^3/uL (140-400) 286x10^3/uL (140-400) Neutrophils (%) (Auto) 75% (31-73) 73% (31-73) Lymphocytes (%) (Auto) 13% (24-48) 16% (24-48) Monocytes (%) (Auto) 9% (0-9) 8% (0-9) Eosinophils (%) (Auto) 2% (0-3) 2% (0-3) Basophils (%) (Auto) 1% (0-3) 1% (0-3) Neutrophils # (Auto) 8.8x10^3uL (1.8-7.7) 7.1x10^3uL (1.8-7.7) Lymphocytes # (Auto) 1.5x10^3/uL (1.0-4.8) 1.6x10^3/uL (1.0-4.8) Monocytes # (Auto) 1.1x10^3/uL (0.0-1.1) 0.7x10^3/uL (0.0-1.1) Eosinophils # (Auto) 0.3x10^3/uL (0.0-0.7) 0.2x10^3/uL (0.0-0.7) Basophils # (Auto) 0.1x10^3/uL (0.0-0.2) 0.1x10^3/uL (0.0-0.2) Sodium Level 142mmol/L (136-145) 140mmol/L (136-145) Potassium Level 4.0mmol/L (3.5-5.1) 4.3mmol/L (3.5-5.1) Chloride Level 107mmol/L (98-107) 106mmol/L (98-107) Carbon Dioxide Level 27mmol/L (21-32) 28mmol/L (21-32) Anion Gap 8 (6-14) 6 (6-14) Blood Urea Nitrogen 19mg/dL (8-26) 13mg/dL (8-26) Creatinine 1.2mg/dL (0.7-1.3) 1.0mg/dL (0.7-1.3) Estimated GFR (Cockcroft-Gault) 86.0 106.2 Glucose Level 94mg/dL (70-99) 87mg/dL (70-99) Calcium Level 8.7mg/dL (8.5-10.1) 9.1mg/dL (8.5-10.1) Vancomycin Level Trough 17.6mcg/mL (10.0-20.0) Vancomycin Last Dose Date Vancomycin Last Dose Time Objective Assessment Septic prepatellar bursitis. s/p I and D, 03/17. Intra-op cx: Staph aureus so far -Swab culture 03/16. MRSA Eczema -Usually controlled with topical hydrocortisone. + flaring Leukocytosis. improved, now up -steroids 03/17. h/o frequent skin infections -s/p I and D, LLE DEC 2015. 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
[2016-03-20 10:20] VITALS: BP 123/64
[2016-03-20] MEDS: LINEZOLID 600 MG TABLET PO SCH ×2 (10:48→21:10)
--- NOTE | 2016-03-20 11:11 | PDOC ---
PROGRESS NOTES Chief Complaint Chief Complaint Prepatellar bursitis ASSESSMENT AND PLAN: 1. R prepatellar bursitis: s/p I&D 03/17 AND 03/21. MRSA. vanco switched to Zyvox by Dr White, appreciate help with management! 2. Hx left talley cellulitis (Dec 2015) requiring I&D. no acute issue 3. Pain control: decrease frequency of pain regimen 4. Dispo: OT/PT eval for home needs; lives by himself Vitals Vitals Vital Signs Date Time Temp Pulse Resp B/P Pulse Ox O2 Delivery O2 Flow Rate FiO2 03/20/16 10:49 20 98 Room Air 03/20/16 07:45 98.4 58 113/62 98.4 Physical Exam General: Alert, Oriented X3, Cooperative, No acute distress Heart: Regular rate Lungs: Clear Abdomen: Normal bowel sounds, Soft Extremities: No clubbing, No cyanosis, No edema, Normal pulses Labs LABS Laboratory Tests Test 03/19/16 15:25 03/20/16 05:00 03/20/16 05:50 White Blood Count 11.8x10^3/uL (4.0-11.0) 9.8x10^3/uL (4.0-11.0) Red Blood Count 5.46x10^6/uL (4.30-5.70) 5.34x10^6/uL (4.30-5.70) Hemoglobin 14.4g/dL (13.0-17.5) 14.3g/dL (13.0-17.5) Hematocrit 44.2% (39.0-53.0) 43.3% (39.0-53.0) Mean Corpuscular Volume 81fL (79-100) 81fL (79-100) Mean Corpuscular Hemoglobin 26pg (25-35) 27pg (25-35) Mean Corpuscular Hemoglobin Concent 33g/dL (31-37) 33g/dL (31-37) Red Cell Distribution Width 14.5% (11.5-14.5) 14.4% (11.5-14.5) Platelet Count 293x10^3/uL (140-400) 286x10^3/uL (140-400) Neutrophils (%) (Auto) 75% (31-73) 73% (31-73) Lymphocytes (%) (Auto) 13% (24-48) 16% (24-48) Monocytes (%) (Auto) 9% (0-9) 8% (0-9) Eosinophils (%) (Auto) 2% (0-3) 2% (0-3) Basophils (%) (Auto) 1% (0-3) 1% (0-3) Neutrophils # (Auto) 8.8x10^3uL (1.8-7.7) 7.1x10^3uL (1.8-7.7) Lymphocytes # (Auto) 1.5x10^3/uL (1.0-4.8) 1.6x10^3/uL (1.0-4.8) Monocytes # (Auto) 1.1x10^3/uL (0.0-1.1) 0.7x10^3/uL (0.0-1.1) Eosinophils # (Auto) 0.3x10^3/uL (0.0-0.7) 0.2x10^3/uL (0.0-0.7) Basophils # (Auto) 0.1x10^3/uL (0.0-0.2) 0.1x10^3/uL (0.0-0.2) Sodium Level 142mmol/L (136-145) 140mmol/L (136-145) Potassium Level 4.0mmol/L (3.5-5.1) 4.3mmol/L (3.5-5.1) Chloride Level 107mmol/L (98-107) 106mmol/L (98-107) Carbon Dioxide Level 27mmol/L (21-32) 28mmol/L (21-32) Anion Gap 8 (6-14) 6 (6-14) Blood Urea Nitrogen 19mg/dL (8-26) 13mg/dL (8-26) Creatinine 1.2mg/dL (0.7-1.3) 1.0mg/dL (0.7-1.3) Estimated GFR (Cockcroft-Gault) 86.0 106.2 Glucose Level 94mg/dL (70-99) 87mg/dL (70-99) Calcium Level 8.7mg/dL (8.5-10.1) 9.1mg/dL (8.5-10.1) Vancomycin Level Trough 17.6mcg/mL (10.0-20.0) Vancomycin Last Dose Date Vancomycin Last Dose Time Review of Systems Review of Systems severe pain with ambulation/weight baring Comment Review of Relevant I have reviewed the following items ander (where applicable) has been applied. Labs Laboratory Tests Test 03/19/16 15:25 03/20/16 05:00 03/20/16 05:50 White Blood Count 11.8x10^3/uL (4.0-11.0) 9.8x10^3/uL (4.0-11.0) Red Blood Count 5.46x10^6/uL (4.30-5.70) 5.34x10^6/uL (4.30-5.70) Hemoglobin 14.4g/dL (13.0-17.5) 14.3g/dL (13.0-17.5) Hematocrit 44.2% (39.0-53.0) 43.3% (39.0-53.0) Mean Corpuscular Volume 81fL (79-100) 81fL (79-100) Mean Corpuscular Hemoglobin 26pg (25-35) 27pg (25-35) Mean Corpuscular Hemoglobin Concent 33g/dL (31-37) 33g/dL (31-37) Red Cell Distribution Width 14.5% (11.5-14.5) 14.4% (11.5-14.5) Platelet Count 293x10^3/uL (140-400) 286x10^3/uL (140-400) Neutrophils (%) (Auto) 75% (31-73) 73% (31-73) Lymphocytes (%) (Auto) 13% (24-48) 16% (24-48) Monocytes (%) (Auto) 9% (0-9) 8% (0-9) Eosinophils (%) (Auto) 2% (0-3) 2% (0-3) Basophils (%) (Auto) 1% (0-3) 1% (0-3) Neutrophils # (Auto) 8.8x10^3uL (1.8-7.7) 7.1x10^3uL (1.8-7.7) Lymphocytes # (Auto) 1.5x10^3/uL (1.0-4.8) 1.6x10^3/uL (1.0-4.8) Monocytes # (Auto) 1.1x10^3/uL (0.0-1.1) 0.7x10^3/uL (0.0-1.1) Eosinophils # (Auto) 0.3x10^3/uL (0.0-0.7) 0.2x10^3/uL (0.0-0.7) Basophils # (Auto) 0.1x10^3/uL (0.0-0.2) 0.1x10^3/uL (0.0-0.2) Sodium Level 142mmol/L (136-145) 140mmol/L (136-145) Potassium Level 4.0mmol/L (3.5-5.1) 4.3mmol/L (3.5-5.1) Chloride Level 107mmol/L (98-107) 106mmol/L (98-107) Carbon Dioxide Level 27mmol/L (21-32) 28mmol/L (21-32) Anion Gap 8 (6-14) 6 (6-14) Blood Urea Nitrogen 19mg/dL (8-26) 13mg/dL (8-26) Creatinine 1.2mg/dL (0.7-1.3) 1.0mg/dL (0.7-1.3) Estimated GFR (Cockcroft-Gault) 86.0 106.2 Glucose Level 94mg/dL (70-99) 87mg/dL (70-99) Calcium Level 8.7mg/dL (8.5-10.1) 9.1mg/dL (8.5-10.1) Vancomycin Level Trough 17.6mcg/mL (10.0-20.0) Vancomycin Last Dose Date Vancomycin Last Dose Time Laboratory Tests Test 03/19/16 15:25 03/20/16 05:00 03/20/16 05:50 White Blood Count 11.8x10^3/uL (4.0-11.0) 9.8x10^3/uL (4.0-11.0) Red Blood Count 5.46x10^6/uL (4.30-5.70) 5.34x10^6/uL (4.30-5.70) Hemoglobin 14.4g/dL (13.0-17.5) 14.3g/dL (13.0-17.5) Hematocrit 44.2% (39.0-53.0) 43.3% (39.0-53.0) Mean Corpuscular Volume 81fL (79-100) 81fL (79-100) Mean Corpuscular Hemoglobin 26pg (25-35) 27pg (25-35) Mean Corpuscular Hemoglobin Concent 33g/dL (31-37) 33g/dL (31-37) Red Cell Distribution Width 14.5% (11.5-14.5) 14.4% (11.5-14.5) Platelet Count 293x10^3/uL (140-400) 286x10^3/uL (140-400) Neutrophils (%) (Auto) 75% (31-73) 73% (31-73) Lymphocytes (%) (Auto) 13% (24-48) 16% (24-48) Monocytes (%) (Auto) 9% (0-9) 8% (0-9) Eosinophils (%) (Auto) 2% (0-3) 2% (0-3) Basophils (%) (Auto) 1% (0-3) 1% (0-3) Neutrophils # (Auto) 8.8x10^3uL (1.8-7.7) 7.1x10^3uL (1.8-7.7) Lymphocytes # (Auto) 1.5x10^3/uL (1.0-4.8) 1.6x10^3/uL (1.0-4.8) Monocytes # (Auto) 1.1x10^3/uL (0.0-1.1) 0.7x10^3/uL (0.0-1.1) Eosinophils # (Auto) 0.3x10^3/uL (0.0-0.7) 0.2x10^3/uL (0.0-0.7) Basophils # (Auto) 0.1x10^3/uL (0.0-0.2) 0.1x10^3/uL (0.0-0.2) Sodium Level 142mmol/L (136-145) 140mmol/L (136-145) Potassium Level 4.0mmol/L (3.5-5.1) 4.3mmol/L (3.5-5.1) Chloride Level 107mmol/L (98-107) 106mmol/L (98-107) Carbon Dioxide Level 27mmol/L (21-32) 28mmol/L (21-32) Anion Gap 8 (6-14) 6 (6-14) Blood Urea Nitrogen 19mg/dL (8-26) 13mg/dL (8-26) Creatinine 1.2mg/dL (0.7-1.3) 1.0mg/dL (0.7-1.3) Estimated GFR (Cockcroft-Gault) 86.0 106.2 Glucose Level 94mg/dL (70-99) 87mg/dL (70-99) Calcium Level 8.7mg/dL (8.5-10.1) 9.1mg/dL (8.5-10.1) Vancomycin Level Trough 17.6mcg/mL (10.0-20.0) Vancomycin Last Dose Date Vancomycin Last Dose Time Microbiology 03/14/16 Blood Culture - Final, Complete NO GROWTH AFTER 5 DAYS 03/17/16 Gram Stain - Final, Complete Medications Current Medications Acetaminophen/ Hydrocodone Bitart (Lortab 5/325) 2 tab 1X ONCE PO Last administered on 03/14/16 20:15; Start 03/14/16 at 20:15; Stop 03/14/16 at 20:16 ; Status DC Acetaminophen/ Hydrocodone Bitart (Lortab 5/325) 2 tab PRN Q6HRS PRN PO MODERATE - SEVERE PAIN Last administered on 03/18/16 08:26; Start 03/14/16 at 20:30; Stop 03/18/16 at 12:34; Status DC Vancomycin HCl 1 each 1 each PRN DAILY PRN MC SEE COMMENTS; Start 03/14/16 at 20:30; Status Cancel Vancomycin HCl/ Sodium Chloride (Iv Sodium Chloride 0.9% 500ml Bag) 500 ml @ 250 mls/hr 1X ONCE IV Last administered on 03/14/16 20:30; Start 03/14/16 at 20:30; Stop 03/14/16 at 22:29; Status DC Acetaminophen (Tylenol) 325 mg PRN Q6HRS PRN PO MILD PAIN / TEMP; Start at 21:00; Stop 03/15/16 at 09:17; Status DC Acetaminophen/ Hydrocodone Bitart (Lortab 5/325) 1 tab PRN Q6HRS PRN PO MODERATE TO SEVERE PAIN Last administered on 03/18/16 02:25; Start 03/14/16 at 21:00; Stop 03/18/16 at 12:34; Status DC Hydralazine HCl (Apresoline) 10 mg PRN Q4HRS PRN IVP ELEVATED BP, SEE COMMENTS ; Start 03/14/16 at 21:00; Stop 03/18/16 at 12:34; Status DC Ondansetron HCl (Zofran) 4 mg PRN Q8HRS PRN IV NAUSEA/VOMITING; Start 03/14/16 at 21:00; Stop 03/15/16 at 09:17; Status DC Albuterol Sulfate (Ventolin Neb Soln) 2.5 mg PRN Q4HRS PRN NEB SHORTNESS OF BREATH; Start 03/14/16 at 21:00; Stop 03/18/16 at 12:34; Status DC Vancomycin HCl (Vanco Per Pharmacy) 1 each PRN DAILY PRN MC SEE COMMENTS Last administered on 03/15/16 02:35; Start 03/14/16 at 21:00; Stop 03/15/16 at 15:00 ; Status DC Morphine Sulfate 2 mg 2 mg PRN Q2HR PRN IV SEVERE PAIN Last administered on 11:06; Start 03/14/16 at 21:00; Stop 03/18/16 at 12:34; Status DC Vancomycin HCl/ Sodium Chloride (Iv Sodium Chloride 0.9% 250ml) 250 ml @ 167 mls/hr Q8HRS IV Last administered on 03/15/16 14:34; Start 03/15/16 at 06:00; Stop 03/15/16 at 14:57; Status DC Vancomycin HCl 1 each 1X ONCE MC ; Start 03/15/16 at 21:30; Stop 03/15/16 at 21 :31; Status Cancel Acetaminophen (Tylenol) 650 mg PRN Q6HRS PRN PO MILD PAIN / TEMP; Start at 09:15; Stop 03/18/16 at 12:34; Status DC Ondansetron HCl (Zofran) 4 mg PRN Q6HRS PRN IV NAUSEA/VOMITING; Start 03/15/16 at 21:00; Stop 03/18/16 at 12:34; Status DC Naproxen 500 mg 500 mg BIDWMEALS PO Last administered on 03/18/16 08:26; Start 03/15/16 at 15:30; Stop 03/18/16 at 12:34; Status DC Ceftriaxone Sodium 1 gm/ Sodium Chloride 50 ml @ 100 mls/hr Q24H IV Last administered on 03/15/16 16:47; Start 03/15/16 at 15:30; Stop 03/16/16 at 12:13 ; Status DC Ceftriaxone Sodium 2 gm/ Sodium Chloride 50 ml @ 100 mls/hr Q24H IV Last administered on 03/17/16 15:13; Start 03/16/16 at 15:30; Stop 03/18/16 at 12:34 ; Status DC Bacitracin 46466 unit/Sodium Chloride 1,000 ml @ 1,000 mls/hr 1X PERIOP ONCE IRR ; Start 03/17/16 at 16:00; Stop 03/17/16 at 16:59; Status DC Bacitracin 45916 unit/Sodium Chloride 1,000 ml @ 1,000 mls/hr 1X PERIOP ONCE IRR Last administered on 03/17/16 14:50; Start 03/17/16 at 14:00; Stop at 14:59; Status DC Bacitracin/Sodium Chloride (Iv Sodium Chloride 0.9% 1000ml Bag) 1,000 ml @ 1, 000 mls/hr 1X PERIOP ONCE IRR ; Start 03/17/16 at 16:00; Stop 03/17/16 at 16:59 ; Status DC Fentanyl Citrate (Fentanyl 2ml Vial) 50 mcg PRN Q5MIN PRN IV Acute Pain Last administered on 03/18/16 02:26; Start 03/17/16 at 14:30; Stop 03/18/16 at 12:34 ; Status DC Morphine Sulfate 4 mg PRN Q10MIN PRN IV Moderate Pain Last administered on 03/17t 16:27; Start 03/17/16 at 14:30; Stop 03/18/16 at 12:34; Status DC Hydromorphone HCl (Dilaudid) 0.4 mg PRN Q10MIN PRN IV Moderate to severe pain; Start 03/17/16 at 14:30; Stop 03/18/16 at 12:34; Status DC Meperidine HCl (Demerol) 12.5 mg PRN Q5MIN PRN IV SHIVERING; Start 03/17/16 at 14:30; Stop 03/18/16 at 12:34; Status DC Prochlorperazine Edisylate (Compazine) 5 mg PRN Q6HRS PRN IV Nausea/Vomiting, 1st Choice; Start 03/17/16 at 14:30; Stop 03/18/16 at 12:34; Status DC Diphenhydramine HCl (Benadryl) 12.5 mg PRN Q2HR PRN IV ITCHING; Start 03/17/16 at 14:30; Stop 03/18/16 at 12:34; Status DC Midazolam HCl (Versed) 2 mg STK-MED ONCE .ROUTE ; Start 03/17/16 at 14:50; Stop 03/17/16 at 14:51; Status DC Fentanyl Citrate 100 mcg 100 mcg STK-MED ONCE .ROUTE ; Start 03/17/16 at 14:51; Stop 03/17/16 at 14:52; Status DC Propofol (Diprivan) 20 ml @ As Directed STK-MED ONCE IV ; Start 03/17/16 at 14: 51; Stop 03/17/16 at 14:52; Status DC Lidocaine HCl 100 mg STK-MED ONCE .ROUTE ; Start 03/17/16 at 14:51; Stop at 14:52; Status DC Dexamethasone Sodium Phosphate (Decadron) 20 mg STK-MED ONCE .ROUTE ; Start at 14:51; Stop 03/17/16 at 14:52; Status DC Famotidine (Pepcid) 20 mg STK-MED ONCE .ROUTE ; Start 03/17/16 at 14:51; Stop at 14:52; Status DC Ondansetron HCl (Zofran) 4 mg STK-MED ONCE .ROUTE ; Start 03/17/16 at 14:51; Stop 03/17/16 at 14:52; Status DC Sevoflurane (Ultane) 30 ml STK-MED ONCE IH ; Start 03/17/16 at 15:30; Stop 03/17 at 15:31; Status DC Oxycodone/ Acetaminophen (Percocet 7.5/ 325) 1 tab PRN Q4HRS PRN PO PAIN Last administered on 03/20/16 10:49; Start 03/18/16 at 14:30 Morphine Sulfate 4 mg PRN Q2HR PRN IV PAIN Last administered on 03/18/16 15:13 ; Start 03/18/16 at 14:30 Vancomycin HCl 1 each 1 each PRN DAILY PRN MC SEE COMMENTS Last administered on 03/19/16 16:04; Start 03/18/16 at 15:15; Stop 03/20/16 at 09:24; Status DC Vancomycin HCl 2 gm/Sodium Chloride 500 ml @ 250 mls/hr 1X ONCE IV Last administered on 03/18/16 16:20; Start 03/18/16 at 16:00; Stop 03/18/16 at 17:59 ; Status DC Vancomycin HCl/ Sodium Chloride (Iv Sodium Chloride 0.9% 250ml) 250 ml @ 167 mls/hr Q8H IV Last administered on 03/20/16 09:15; Start 03/19/16 at 00:00; Stop 03/20/16 at 09:24; Status DC Vancomycin HCl 1 each 1X ONCE MC Last administered on 03/19/16 15:30; Start 03/19/16 at 15:30; Stop 03/19/16 at 15:31; Status DC Linezolid (Zyvox) 600 mg BID PO Last administered on 03/20/16 10:48; Start at 09:30 Active Scripts Active Ibuprofen 800 Mg Tablet 800 Mg PO PRN Q6HRS PRN Reported Proair Hfa Inhaler (Albuterol Sulfate) 8.5 Gm Hfa.aer.ad 1 Puff INH PRN Q6HRS PRN Vitals/I & O Vital Sign - Last 24 Hours 03/19/16 03/19/16 03/19/16 03/19/16 15:00 17:32 19:00 19:40 Temp 98.6 99.0 98.6 99.0 Pulse 76 85 Resp 18 18 B/P 119/80 113/64 Pulse Ox 99 98 O2 Delivery Room Air Room Air Room Air 03/19/16 03/20/16 03/20/16 03/20/16 23:00 02:55 07:45 08:00 Temp 99.1 98.5 98.4 99.1 98.5 98.4 Pulse 62 85 58 Resp 20 18 18 B/P 124/76 113/62 Pulse Ox 95 98 97 O2 Delivery Room Air Room Air Room Air Room Air 03/20/16 03/20/16 08:39 10:49 Resp 20 Pulse Ox 98 98 O2 Delivery Room Air Room Air Intake and Output 03/19/16 03/19/16 03/20/16 15:00 23:00 07:00 Intake Total 400 ml 480 ml Output Total 500 ml Balance -100 ml 480 ml ANAHY YANES MD Mar 20, 2016 11:11
[2016-03-20] MEDS: MORPHINE SULFATE 4 MG/ML DISP.SYRIN. IV PRN (13:51)
[2016-03-20] MEDS ORDERED: MORPHINE SULFATE 2 MG/ML DISP.SYRIN. IV PRN (14:15)
[2016-03-20 15:10] VITALS: BP 121/70
[2016-03-20] MEDS: ENOXAPARIN 40 MG/0.4 ML DISP.SYRIN. SQ SCH (18:14)
[2016-03-20 19:00] VITALS: BP 128/68
--- NOTE | 2016-03-20 21:22 | PDOC ---
PROGRESS NOTES Subjective Subjective Problems overnight:None. The patient grew MRSA on one culture, the other cultures are currently growing staph. His wbc has normalized since being started on vancomycin. He reports his pain is improving as well. Still has packing in place. Objective Vital Signs Vital Signs Date Time Temp Pulse Resp B/P Pulse Ox O2 Delivery O2 Flow Rate FiO2 03/20/16 21:10 18 95 Room Air 03/20/16 19:15 10.0 03/20/16 19:00 98.4 83 128/68 98.4 Physical Exam LEFT LOWER EXTREMITY: Dressing c/d/i. another foot of the packing was discontinued. The incision looks better. no drainage from the knee. NEUROVASCULARLY INTACT distally. Labs Laboratory Tests Test 03/19/16 15:25 03/20/16 05:00 03/20/16 05:50 White Blood Count 11.8x10^3/uL (4.0-11.0) 9.8x10^3/uL (4.0-11.0) Red Blood Count 5.46x10^6/uL (4.30-5.70) 5.34x10^6/uL (4.30-5.70) Hemoglobin 14.4g/dL (13.0-17.5) 14.3g/dL (13.0-17.5) Hematocrit 44.2% (39.0-53.0) 43.3% (39.0-53.0) Mean Corpuscular Volume 81fL (79-100) 81fL (79-100) Mean Corpuscular Hemoglobin 26pg (25-35) 27pg (25-35) Mean Corpuscular Hemoglobin Concent 33g/dL (31-37) 33g/dL (31-37) Red Cell Distribution Width 14.5% (11.5-14.5) 14.4% (11.5-14.5) Platelet Count 293x10^3/uL (140-400) 286x10^3/uL (140-400) Neutrophils (%) (Auto) 75% (31-73) 73% (31-73) Lymphocytes (%) (Auto) 13% (24-48) 16% (24-48) Monocytes (%) (Auto) 9% (0-9) 8% (0-9) Eosinophils (%) (Auto) 2% (0-3) 2% (0-3) Basophils (%) (Auto) 1% (0-3) 1% (0-3) Neutrophils # (Auto) 8.8x10^3uL (1.8-7.7) 7.1x10^3uL (1.8-7.7) Lymphocytes # (Auto) 1.5x10^3/uL (1.0-4.8) 1.6x10^3/uL (1.0-4.8) Monocytes # (Auto) 1.1x10^3/uL (0.0-1.1) 0.7x10^3/uL (0.0-1.1) Eosinophils # (Auto) 0.3x10^3/uL (0.0-0.7) 0.2x10^3/uL (0.0-0.7) Basophils # (Auto) 0.1x10^3/uL (0.0-0.2) 0.1x10^3/uL (0.0-0.2) Sodium Level 142mmol/L (136-145) 140mmol/L (136-145) Potassium Level 4.0mmol/L (3.5-5.1) 4.3mmol/L (3.5-5.1) Chloride Level 107mmol/L (98-107) 106mmol/L (98-107) Carbon Dioxide Level 27mmol/L (21-32) 28mmol/L (21-32) Anion Gap 8 (6-14) 6 (6-14) Blood Urea Nitrogen 19mg/dL (8-26) 13mg/dL (8-26) Creatinine 1.2mg/dL (0.7-1.3) 1.0mg/dL (0.7-1.3) Estimated GFR (Cockcroft-Gault) 86.0 106.2 Glucose Level 94mg/dL (70-99) 87mg/dL (70-99) Calcium Level 8.7mg/dL (8.5-10.1) 9.1mg/dL (8.5-10.1) Vancomycin Level Trough 17.6mcg/mL (10.0-20.0) Vancomycin Last Dose Date Vancomycin Last Dose Time Laboratory Tests Test 03/20/16 05:00 03/20/16 05:50 White Blood Count 9.8x10^3/uL (4.0-11.0) Red Blood Count 5.34x10^6/uL (4.30-5.70) Hemoglobin 14.3g/dL (13.0-17.5) Hematocrit 43.3% (39.0-53.0) Mean Corpuscular Volume 81fL (79-100) Mean Corpuscular Hemoglobin 27pg (25-35) Mean Corpuscular Hemoglobin Concent 33g/dL (31-37) Red Cell Distribution Width 14.4% (11.5-14.5) Platelet Count 286x10^3/uL (140-400) Neutrophils (%) (Auto) 73% (31-73) Lymphocytes (%) (Auto) 16% (24-48) Monocytes (%) (Auto) 8% (0-9) Eosinophils (%) (Auto) 2% (0-3) Basophils (%) (Auto) 1% (0-3) Neutrophils # (Auto) 7.1x10^3uL (1.8-7.7) Lymphocytes # (Auto) 1.6x10^3/uL (1.0-4.8) Monocytes # (Auto) 0.7x10^3/uL (0.0-1.1) Eosinophils # (Auto) 0.2x10^3/uL (0.0-0.7) Basophils # (Auto) 0.1x10^3/uL (0.0-0.2) Sodium Level 140mmol/L (136-145) Potassium Level 4.3mmol/L (3.5-5.1) Chloride Level 106mmol/L (98-107) Carbon Dioxide Level 28mmol/L (21-32) Anion Gap 6 (6-14) Blood Urea Nitrogen 13mg/dL (8-26) Creatinine 1.0mg/dL (0.7-1.3) Estimated GFR (Cockcroft-Gault) 106.2 Glucose Level 87mg/dL (70-99) Calcium Level 9.1mg/dL (8.5-10.1) Assessment Assessment POD# 3, S/P I&D left prepatellar bursa -continue antibiotics per primary -tomorrow will discontinue the rest of the packing, he will need to go home with dressing material for the knee. -he can follow-up in my office in one week for suture removal. -weight-bearing as tolerated with physical therapy -pain control Problems: PAUL BAH MD Mar 20, 2016 21:22
[2016-03-20 23:00] VITALS: BP 123/68
[2016-03-21] MEDS: OXYCODONE/APAP 7.5/325 TABLET. PO PRN ×4 (00:49→15:14)
[2016-03-21 07:00] VITALS: BP 118/63
--- NOTE | 2016-03-21 08:24 | PDOC ---
PROGRESS NOTES Subjective Subjective Problems overnight: no acute problems overnight. afebrile. pain improving. Still not ambulating well with PT per patient. wanting to go home today. Objective Vital Signs Vital Signs Date Time Temp Pulse Resp B/P Pulse Ox O2 Delivery O2 Flow Rate FiO2 03/21/16 06:31 18 98 Room Air 03/21/16 00:49 10.0 03/20/16 23:00 98.1 61 123/68 98.1 Physical Exam LLE: dressing c/d/i. All packing removed. mild serosanginous drainage from the wound. no purulence noted. nvi distally. Labs Laboratory Tests Test 03/19/16 15:25 03/20/16 05:00 03/20/16 05:50 White Blood Count 11.8x10^3/uL (4.0-11.0) 9.8x10^3/uL (4.0-11.0) Red Blood Count 5.46x10^6/uL (4.30-5.70) 5.34x10^6/uL (4.30-5.70) Hemoglobin 14.4g/dL (13.0-17.5) 14.3g/dL (13.0-17.5) Hematocrit 44.2% (39.0-53.0) 43.3% (39.0-53.0) Mean Corpuscular Volume 81fL (79-100) 81fL (79-100) Mean Corpuscular Hemoglobin 26pg (25-35) 27pg (25-35) Mean Corpuscular Hemoglobin Concent 33g/dL (31-37) 33g/dL (31-37) Red Cell Distribution Width 14.5% (11.5-14.5) 14.4% (11.5-14.5) Platelet Count 293x10^3/uL (140-400) 286x10^3/uL (140-400) Neutrophils (%) (Auto) 75% (31-73) 73% (31-73) Lymphocytes (%) (Auto) 13% (24-48) 16% (24-48) Monocytes (%) (Auto) 9% (0-9) 8% (0-9) Eosinophils (%) (Auto) 2% (0-3) 2% (0-3) Basophils (%) (Auto) 1% (0-3) 1% (0-3) Neutrophils # (Auto) 8.8x10^3uL (1.8-7.7) 7.1x10^3uL (1.8-7.7) Lymphocytes # (Auto) 1.5x10^3/uL (1.0-4.8) 1.6x10^3/uL (1.0-4.8) Monocytes # (Auto) 1.1x10^3/uL (0.0-1.1) 0.7x10^3/uL (0.0-1.1) Eosinophils # (Auto) 0.3x10^3/uL (0.0-0.7) 0.2x10^3/uL (0.0-0.7) Basophils # (Auto) 0.1x10^3/uL (0.0-0.2) 0.1x10^3/uL (0.0-0.2) Sodium Level 142mmol/L (136-145) 140mmol/L (136-145) Potassium Level 4.0mmol/L (3.5-5.1) 4.3mmol/L (3.5-5.1) Chloride Level 107mmol/L (98-107) 106mmol/L (98-107) Carbon Dioxide Level 27mmol/L (21-32) 28mmol/L (21-32) Anion Gap 8 (6-14) 6 (6-14) Blood Urea Nitrogen 19mg/dL (8-26) 13mg/dL (8-26) Creatinine 1.2mg/dL (0.7-1.3) 1.0mg/dL (0.7-1.3) Estimated GFR (Cockcroft-Gault) 86.0 106.2 Glucose Level 94mg/dL (70-99) 87mg/dL (70-99) Calcium Level 8.7mg/dL (8.5-10.1) 9.1mg/dL (8.5-10.1) Vancomycin Level Trough 17.6mcg/mL (10.0-20.0) Vancomycin Last Dose Date Vancomycin Last Dose Time Assessment Assessment POD# 4, S/P I &D LLE for prepatellar bursitis cx grew MRSA f/u next week in clinic for wound check. return to care instructions as well as dressing instructions listed in the discharge instructions. Ok to wbat on his lle. no bending for now until the sutures come out next week. will likely need some therapy for knee ROM once the incision has healed. Problems: PAUL BAH MD Mar 21, 2016 08:24
[2016-03-21] MEDS: LINEZOLID 600 MG TABLET PO SCH (08:30)
--- NOTE | 2016-03-21 10:41 | PDOC ---
Infectious Disease Note Subjective Subjective Doing ok. Slept alright - still with pain ROS ROS GEN: Denies fevers, chills, sweats HEENT: Denies blurred vision, sore throat CV: Denies chest pain RESP: Denies shortness of air, cough GI: Denies n/v/d NEURO: Denies confusion, dizziness MSK: Denies weakness, joint pain/swelling Vital Sign Vital Signs Vital Signs Date Time Temp Pulse Resp B/P Pulse Ox O2 Delivery O2 Flow Rate FiO2 03/21/16 10:37 Room Air 03/21/16 07:00 98.4 62 16 118/63 99 98.4 03/21/16 00:49 10.0 Physical Exam PHYSICAL EXAM GENERAL: NAD, Alert working with PT and crutches HEENT: PERRL, OC/OP- clear NECK: Supple, no JVD, no LN LUNGS: Clear HEART: S1S2, no gallop, no murmur ABD: Soft, NT, no organomegaly, no rebound. knee dressed EXT: No edema, no cyanosis RV SERVICE TECHNICIAN: Alert, oriented x 3, no focal neurologic deficit SKIN: No rash IV: ok Objective Assessment Septic prepatellar bursitis. s/p I and D, 03/17. Intra-op cx: Staph aureus so far -Swab culture 03/16. MRSA Eczema -Usually controlled with topical hydrocortisone. + flaring Leukocytosis. improved, now up -steroids 03/17. h/o frequent skin infections -s/p I and D, LLE DEC 2015. clindamycin -Lives alone, works in radio, has a dog Plan Plan of Care Cont po Zyvox- checking approval. If not approved home on Minocycline 100 mg po BID for 10 days Can F/u ID office one week JONAH BERGERON MD Mar 21, 2016 10:41
[2016-03-21 10:57] VITALS: BP 140/76
--- NOTE | 2016-03-21 14:02 | DISCH ---
DISCHARGE INSTRUCTIONS Condition on Discharge Condition on Discharge: Stable Activity After Discharge Activity Instructions for Disc: Other, see below Diet after Discharge Diet after Discharge: Regular Contacting the DR. after DC Call your doctor for: If your condition worsens Follow-Up Follow up with: wound clinic/Dr Mccurdy in 1 week ANAHY YANES MD Mar 21, 2016 14:01
[2016-03-21] MEDS ORDERED: OXYC1TAB8 PO (14:06)
[2016-03-21] MEDS ORDERED: LINE600T PO (14:06)
[2016-03-21] MEDS: ENOXAPARIN 40 MG/0.4 ML DISP.SYRIN. SQ SCH (15:00)
--- NOTE | 2016-03-22 20:26 | DS ---
DATE OF DISCHARGE: 03/21/2016 CHIEF COMPLAINT: Knee swelling. HOSPITAL COURSE: The patient is a 31-year-old -[place] gentleman, in excellent state of health, who presented to the Emergency Room with significant knee swelling on the right. He was diagnosed with prepatellar bursitis as well as abscess, requiring I and D on 03/17/2016 and repeated on 03/21/2016. MRSA was identified. He initially was treated with vancomycin, which towards the end of his hospitalization, was switched to Zyvox under the care of Dr. White. Dr. Mccurdy managed his wound. After initial packing, all packing was removed prior to discharge. He had physical therapy worked with him to teach him to properly use crutches. PHYSICAL EXAMINATION: Please refer to note from same day. DISCHARGE DISPOSITION: To home. DISCHARGE CONDITION: Improved. DISCHARGE DIAGNOSIS: Right knee abscess/prepatellar bursitis. DISCHARGE MEDICATIONS: Please refer to MAR. DISCHARGE INSTRUCTIONS: The patient will follow up with wound clinic and Dr. Mccurdy as arranged. ANAHY YANES MD DR: MARIA G/nts JOB#: [id number] / [id number] JUSTIN
== END 2016-03-21 16:00 | disposition home or self-care (01) | DRG 501 ==
LOC: ER 18:42 → 5 NORTH 20:08
PROVIDERS: ADMIT Internal Medicine; ATTEND Internal Medicine
PROC: 0M9P0ZZ Drainage of Left Knee Bursa and Ligament, Open Approach (ICD-10-PCS; principal; 2016-03-17 16:00)
DX: M70.42 Prepatellar bursitis, left knee (principal); L03.116 Cellulitis of left lower limb; L02.415 Cutaneous abscess of right lower limb; B95.62 Methicillin resistant Staphylococcus aureus infection as the cause of diseases classified elsewhere; I10 Essential (primary) hypertension; J45.909 Unspecified asthma, uncomplicated; L30.9 Dermatitis, unspecified; M70.41 Prepatellar bursitis, right knee; S80.22 Blister (nonthermal) of knee; Z82.49 Family history of ischemic heart disease and other diseases of the circulatory system; Z91.041 Radiographic dye allergy status; Z91.013 Allergy to seafood
CPT/HCPCS: 36415; 73562; 73721; 80048; 80053; 80202; 85007; 85027; 85651; 87040; 87071; 87075; 87102; 87116; 87186; 87205; 94250; 94760; 96365; J0696; J1100; J1650; J2250; J2270; J2405; J2704; J3010; J3370; J3490; J7030; J7040; J7050; S0028; 99285-25

== ENCOUNTER → 2016-04-05 | Outpatient (CLI) | payer SELFPAY ==
[2016-03-21 10:57] VITALS: BP 140/76
[~2016-04-05] MED LIST changes: +LINE600T PO; +OXYC1TAB8 PO; +PROAIR HFA8.5 GM INH
[2016-04-05 17:11] LABS: BASO # 0.1 x10^3/uL (0.0-0.2); BASO % 1 % (0-3); EOS % 4 % (0-3); HEMATOCRIT 44.1 % (39.0-53.0); HEMOGLOBIN 14.1 g/dL (13.0-17.5); LYMPH # 1.6 x10^3/uL (1.0-4.8); LYMPH % 22 % (24-48); MEAN CORPUSCULAR HEMOGLOBIN 26 pg (25-35); MEAN CORPUSCULAR HGB CONC 32 g/dL (31-37); MEAN CORPUSCULAR VOLUME 82 fL (79-100); MONO % 8 % (0-9); NEUT % 66 % (31-73); PLATELET COUNT 174 x10^3/uL (140-400); RED BLOOD COUNT 5.38 x10^6/uL (4.30-5.70); WHITE BLOOD COUNT 7.3 x10^3/uL (4.0-11.0)
[2016-04-05 17:24] LABS: CALCIUM 9.1 mg/dL (8.5-10.1); CREATININE 1.1 mg/dL (0.7-1.3); GFR 95.1; POTASSIUM 3.7 mmol/L (3.5-5.1)
== END | disposition home or self-care (01) ==
LOC: LAB 16:40
PROVIDERS: ATTEND Internal Medicine Infectious Disease
DX: Z79.899 Other long term (current) drug therapy (principal)
CPT/HCPCS: 36415; 80048; 85027

== ENCOUNTER 2016-05-30 23:13 | Emergency (ER) | payer SELFPAY ==
[2016-05-30 23:15] VITALS: BP 144/84
[2016-05-30] MEDS ORDERED: LINE600T PO (23:57)
[2016-05-30] MEDS ORDERED: HYDR-971 PO (23:57)
--- NOTE | 2016-05-30 23:58 | PHYS DOC ---
Past Medical History Past Medical History: Asthma, Other Additional Past Medical Histor: family hx - DVT, HTN, cellulitis,MRSA SKIN Past Surgical History: No Surgical History Alcohol Use: Occasionally Drug Use: None Adult General Chief Complaint Chief Complaint: SKIN RASH/ABSCESS HPI HPI Patient is a 31 year old male who presents emergency Department today with concerns for wounds on his left lower leg, right knee, left buttock and right forearm that began to present themselves within the past week. Patient has an unfortunate history of having complications due to MRSA cellulitis. He was initially treated with inpatient hospitalization here with vancomycin and then transition to by mouth Zyvox. He had multiple visits with wound care for follow- on evaluation until he was told he was cleared and did not require the Zyvox any longer. He states that he did schedule an appointment with Dr. Esposito to be seen in 2 days. He states that once the other 2 lesions popped up on his buttock and arm, he decided to come to the emergency room to be seen. He denies fevers, chills, myalgias or arthralgias. Review of Systems Review of Systems Constitutional: Denies fever or chills [] Eyes: Denies change in visual acuity, redness, or eye pain [] HENT: Denies nasal congestion or sore throat [] Respiratory: Denies cough or shortness of breath [] Cardiovascular: No additional information not addressed in HPI [] GI: Denies abdominal pain, nausea, vomiting, bloody stools or diarrhea [] : Denies dysuria or hematuria [] Musculoskeletal: Denies back pain or joint pain [] Integument: Denies rash or skin lesions [] Neurologic: Denies headache, focal weakness or sensory changes [] Endocrine: Denies polyuria or polydipsia [] Allergies Allergies Allergies Coded Allergies Type Severity Reaction Last Updated Verified iodine Allergy Severe 03/15/16 Yes Fish Containing Products Allergy Intermediate 11/06/15 Yes Iodine and Iodide Containing Produc Allergy Intermediate 03/15/16 Yes shellfish derived Allergy Intermediate 11/06/15 Yes I S O L A T I O N *CONTACT* Allergy Unknown 03/20/16 Yes Physical Exam Physical Exam Constitutional: Well developed, well nourished, no acute distress, non-toxic appearance. [] HENT: Normocephalic, atraumatic, bilateral external ears normal, oropharynx moist, no oral exudates, nose normal. [] Eyes: PERRLA, EOMI, conjunctiva normal, no discharge. [] Neck: Normal range of motion, no tenderness, supple, no stridor. [] Cardiovascular:Heart rate regular rhythm, no murmur [] Lungs & Thorax: Bilateral breath sounds clear to auscultation [] Abdomen: Bowel sounds normal, soft, no tenderness, no masses, no pulsatile masses. [] Skin: Patient with a discoid, centimeter lesion to his left lower leg, anterior region without any significant swelling or erythema. There is no active purulent drainage. There is no fluctuant pocket. He has a similar lesion to the superior medial aspect of his right knee. There is no fusiform swelling to the knee or erythema. There is no complaints of pain with range of motion to the knee. Patient has an subcentimeter indurated lesion to the superior aspect of his left buttock and a similar lesion to his proximal right forearm. Again there is no fluctuant pocket, surrounding erythema or ascending lymphangitis. Back: No tenderness, no CVA tenderness. [] Extremities: No tenderness, no cyanosis, no clubbing, ROM intact, no edema. [] Neurologic: Alert and oriented X 3, normal motor function, normal sensory function, no focal deficits noted. [] Psychologic: Affect normal, judgement normal, mood normal. [] Current Patient Data Vital Signs Vital Signs Date Time Temp Pulse Resp B/P Pulse Ox O2 Delivery O2 Flow Rate FiO2 05/30/16 23:15 97.9 70 18 98 Room Air 97.9 EKG EKG [] Radiology/Procedures Radiology/Procedures [] Course & Med Decision Making Course & Med Decision Making Given patient's history of complications with MRSA, I will prescribe him Zyvox, 600 mg by mouth twice a day as he was previously on by the infectious disease doctor. He will follow-up with Dr. Esposito in 2 days. We discussed minimizing transmission to other people by direct contact, I'll allow them to use personal hygiene equipment such as towels or touching any of his articles of clothing that may have any type of drainage. Patient verbalized understanding of this. Dragon Disclaimer Dragon Disclaimer This electronic medical record was generated, in whole or in part, using a voice recognition dictation system. 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 Read over the information provided in these discharge instructions. 2. Take the medication as prescribed. Apply warm compresses to the lesions every 2 hours for 20-30 minutes at a time. 3. Be sure to follow-up for your appointment as planned. Scripts Hydrocodone/Apap 5-325 (Llewellyn 5-325 Tablet)1 Each Tablet1 Tab PO PRN Q6HRS PRN PAIN #15 TAB Ref 0 Prov:ABILIO SNEED 05/30/16 Linezolid (Zyvox)600 Mg [place]758 Mg PO BID #30 Prov:ABILIO SNEED 05/30/16 ABILIO SNEED May 30, 2016 23:58
== END 2016-05-31 00:08 | disposition home or self-care (01) ==
LOC: ER 23:13
DX: Z22.322 Carrier or suspected carrier of Methicillin resistant Staphylococcus aureus (principal); J45.909 Unspecified asthma, uncomplicated; Z91.041 Radiographic dye allergy status; Z91.013 Allergy to seafood
CPT/HCPCS: 99283